=== PATIENT | male | born 1990 | race Hispanic/Latino ===

== ENCOUNTER 2019-03-10 16:27 | Inpatient (IN) | payer MEDICARE, MEDICAID ==
[~2019-03-10 16:27] MED LIST: EPINEPHrine 1 MG/10 ML Abboject SYRINGE ONE; Sodium Bicarb 50 MEQ/50 ML Abboject 8.4% SYRINGE ONE
[2019-03-10 16:56] LABS: Actual Bicarbonate (HCO3a) 2.7 mEq/L (22-28); Analyzer IN Cardio ER; Base Excess (BEa) -27.8 mEq/L (-2.0 to +3.0); Hemoglobin (Hb) 16.1 g/dL (14.0-18.0); O2 Tension (PaO2) 133.8 mmHg (80.0-100.0); Potassium - ABG Lab 3.73 mmol/L (3.70-5.30)
[2019-03-10 16:57] LABS: ALV-art Gradient 0.305 (0-20); CO2 Tension 12.5 mmHg (35.0-45.0); Puncture Site RRA; pH, Arterial 6.95 (7.35-7.45)
[2019-03-10 17:11] LABS: Hemoglobin 16.6 g/dL (14.0-18.0); Mean Corpuscular HGB CONC 33.4 g/dL (32.0-36.0); Mean Corpuscular Hemoglobin 28.2 pg (27.0-31.0); Mean Corpuscular Volume 84.5 fL (78.0-98.0); Mean Platelet Volume 11.3 fL (7.4-10.4); Platelet Count 261 thou/uL (130-400); RBC Distribution Width 12.6 % (11.5-14.5); Red Blood Cell (RBC) Count 5.88 mill/uL (4.70-6.10); White Blood Cell (WBC) Count 14.8 thou/uL (4.8-10.8)
[2019-03-10] MEDS ORDERED: Fentanyl 100 MCG/2 ML VIAL ONE (17:26)
[2019-03-10] MEDS ORDERED: Ondansetron PF 4 MG/2 ML Vial ONE (17:26)
[2019-03-10 17:30] LABS: Acetaminophen Less than 6.0 mcg/mL (10.0-30.0); Alcohol Less than 10 mg/dL (Less than 10); CK (CPK) 645 U/L (30-200); Salicylate Less than 8.0 mg/dL (15.0-30.0)
[2019-03-10 17:34] LABS: Band 67 % (5-11); Large Platelets SLIGHT; MDiff Complete? YES; Metamyelocyte 3 % (0-0); Monocytes 5 % (0-10); Neutrophil 15 % (42-75); Platelet Morphology Comment Appears Adequate; Polychromasia SLIGHT = 2-3 cells (100X) (0-2/hpf); Reactive Lymphocytes 10 % (0-10); Reflex for Review?? YES
--- NOTE | 2019-03-10 17:36 | RAD ---
RADIOGRAPH CHEST 1 VIEW: DATE: 03/10/2019 HISTORY: 28-year-old male with drug overdose. FINDINGS: Study is limited because of hypoinflated lungs. There are no airspace densities, pulmonary edema, pne umothorax, or cardiomegaly. The lateral costophrenic angles are sharp. IMPRESSION: No acute cardiopulmonary findings.
[2019-03-10 17:41] LABS: ALT (SGPT) 42 U/L (8-55); AST (SGOT) 25 U/L (5-34); Albumin 4.2 g/dL (3.5-5.0); Alkaline Phosphatase 114 U/L (40-110); BUN (Urea Nitrogen) 55 mg/dL (8.9-20.6); Bilirubin, Total 0.5 mg/dL (0.2-1.2); Calc. Creatinine Clearance 0 mL/min (70-130); Calcium 9.5 mg/dL (7.8-10.44); Carbon Dioxide Less than 8 mmol/L (22-29); Chloride 77 mmol/L (98-107); Estimated GFR-MDRD 23; Globulin 3.4 g/dL (2.4-3.5); Glucose 852 mg/dL (70-105); Lipase 512 U/L (8-78); Potassium 3.8 mmol/L (3.5-5.1); Protein, Total 7.6 g/dL (6.0-8.3); Sodium 116 mmol/L (136-145)
[2019-03-10] MEDS ORDERED: Insulin Regular 100 units/100 ml in NS IVPB SCH (18:15)
[2019-03-10] MEDS ORDERED: NS 0.9% w/ 40 MEQ KCL 1,000 ML IV SCH (18:30)
[2019-03-10] MEDS ORDERED: Ondansetron PF 4 MG/2 ML Vial IVP PRN (18:58)
[2019-03-10] MEDS ORDERED: Guaifenesin DM 100-10/5 ML UDCUP PO PRN (18:58)
[2019-03-10] MEDS ORDERED: Senokot S 8.6-50 MG TAB PO PRN (18:58)
[2019-03-10] MEDS ORDERED: NS 0.9% w/ 20 MEQ KCL 1,000 ML IV PRN ×2 (18:58)
[2019-03-10] MEDS ORDERED: D5 1/2 NS w/20 mEq KCL 1,000 ML IV PRN (18:58)
[2019-03-10] MEDS ORDERED: Bisacodyl 10 MG SUPP PR PRN (18:58)
[2019-03-10] MEDS ORDERED: ALPRAZolam 0.25 MG TAB PO PRN (18:58)
[2019-03-10] MEDS ORDERED: Sodium Chloride 0.9% 1,000 ML IV PRN ×4 (18:58)
[2019-03-10] MEDS ORDERED: CCU Electrolyte Replacement 1 EACH IVPB ONE (18:58)
[2019-03-10] MEDS ORDERED: cefTRIAXone\\ROCEPHIN 1 GM in Sodium Chloride 0.9% 100 ML IVPB SCH (19:00)
[2019-03-10] MEDS ORDERED: Magnesium Oxide 400 MG TAB PO PRN ×2 (19:12)
[2019-03-10] MEDS ORDERED: PHOS-NAK 1 PKT PACK PO PRN ×2 (19:12)
[2019-03-10] MEDS ORDERED: Potassium Chloride 40 MEQ in Sodium Chloride 0.9% 250 ML 250 ML IVPB PRN (19:12)
[2019-03-10] MEDS ORDERED: Potassium Phosphate 9 MMOL in Sodium Chloride 0.9% 100 ML IVPB PRN (19:12)
[2019-03-10] MEDS ORDERED: Potassium Chloride 40 MEQ in Premix Bag 1 BAG IVPB PRN (19:12)
[2019-03-10] MEDS ORDERED: CCU ELECTROLYTE REPLACEMENT PROTOCOL FS PRN (19:12)
[2019-03-10] MEDS ORDERED: Potassium Chloride 20 MEQ TAB PO PRN (19:12)
[2019-03-10] MEDS ORDERED: Potassium Phosphate 15 MMOL in Sodium Chloride 0.9% 250 ML 250 ML IV PRN (19:12)
[2019-03-10] MEDS ORDERED: Magnesium 2 GM/50 ML 2 GM in Premix Bag 1 BAG IVPB PRN (19:12)
[2019-03-10] MEDS ORDERED: Potassium Phosphate 12 MMOL in Sodium Chloride 0.9% 250 ML 250 ML IV PRN (19:12)
[2019-03-10 19:20] LABS: Bacteria/HPF None Seen HPF (None Seen); Bilirubin Negative (Negative); Blood, Urine 3+ (Negative); Clarity Clear (Clear); Glucose, Urine (Dipstick) Greater than 1000 mg/dL (Negative); Leukocyte Negative Leu/uL (Negative); Nitrite Negative (Negative); Protein, Urine (Dipstick) 50 mg/dL (Neg-Trace); RBC/HPF 0-3 HPF (0-3); Squamous Epithelial 0-3 HPF (0-3); Urobilinogen Normal mg/dL (Less than 2); WBC/HPF 0-3 HPF (0-3)
[2019-03-10 19:24] LABS: Amphetamine Not Detected (NotDetected); Barbiturates Screen Not Detected (NotDetected); Benzodiazepine Screen Not Detected (NotDetected); Cocaine Metabolite Screen Not Detected (NotDetected); Medtox Control Line Valid? VALID (VALID); Medtox Reader # READER 1; Methadone Not Detected (NotDetected); Methamphetamine Not Detected (NotDetected); Opiate Screen Not Detected (NotDetected); Oxycodone Screen Not Detected (NotDetected); Phencyclidine (PCP) Not Detected (NotDetected); THC/Cannabinoid Screen Not Detected (NotDetected); Tricyclic Screen Detected (NotDetected)
[2019-03-10 20:32] LABS: Lactic Acid 2.1 mmol/L (0.5-2.2)
[2019-03-10 20:41] LABS: Chloride 97 mmol/L (98-107); Potassium 3.6 mmol/L (3.5-5.1); Sodium 128 mmol/L (136-145)
[2019-03-10] MEDS: lamoTRIgine 100 MG TAB PO SCH (20:41)
[2019-03-10 20:44] LABS: Calcium 7.5 mg/dL (7.8-10.44); Glucose 554 mg/dL (70-105)
[2019-03-10 20:45] LABS: Carbon Dioxide Less than 8 mmol/L (22-29)
[2019-03-10 20:46] LABS: BUN (Urea Nitrogen) 51 mg/dL (8.9-20.6); Calc. Creatinine Clearance 0 mL/min (70-130); Estimated GFR-MDRD 31
--- NOTE | 2019-03-10 21:33 | HP ---
REASON FOR ADMISSION: DKA. HISTORY OF PRESENT ILLNESS: Please note majority of this history is obtained by talking to the patient's brother and ER physician as the patient is very lethargic. Brother gives history of patient being depressed due to work related issues and was upset on Monday. He usually plays video games, but was on the couch and was reluctant to talk. He managed to get him a pizza and a 2 L soda, which he finished in 2 hours. On Monday, brother came late home, by then he was asleep. Today at around 3 p.m., the patient was sitting on the couch and was saying he could not breathe. He took 2 tablets of antacids and still was not getting comfortable. He was getting more lethargic and EMS was summoned. The patient has history of prediabetes in the past. He has known history of schizophrenia and bipolar disorder. No complaints of cough or expectoration. No complaints of abdominal pain or urinary symptoms including frequency or urgency. No chest pain. PAST MEDICAL AND SURGICAL HISTORY: History of schizophrenia, bipolar disorder, obesity, and prediabetes. CURRENT MEDICATIONS: The patient is on, 1. Nortriptyline 50 mg p.o. at bedtime. 2. Alprazolam 0.5 mg p.o. at bedtime. 3. Lamotrigine 200 mg p.o. at bedtime. 4. Clozapine 100 mg p.o. daily. ALLERGIES: NO KNOWN DRUG ALLERGIES. PERSONAL HISTORY: Rarely drinks alcohol, which he had day before and does not abuse drugs or smoke. He works at [employer] and does 20 hours a week. Lives with his parents and brother. FAMILY HISTORY: The patient is adopted. Both adopted parents are living and healthy. CODE STATUS: Full. Power of erisa attorney is his mom, Ms. Denis Lopez, number to reach her is [phone]. REVIEW OF SYSTEMS: Cannot be obtained as the patient is not oriented and is lethargic at present. PHYSICAL EXAMINATION: GENERAL: The patient is a 28-year-old male, who is not in any acute distress. VITAL SIGNS: Blood pressure 68/44 on arrival, currently 90/40; pulse 76 per minute; respiratory rate 30 per minute; temperature 94.2 degrees on arrival; and saturating 100% on room air. NECK: Supple. No elevated JVD. HEENT: Eyes; extraocular muscles intact. Pupils reacting to light. Oral cavity, mucous membranes are dry. No exudates or congestion. CARDIOVASCULAR: S1 and S2 heard. Regular rhythm. RESPIRATORY: Air entry 1+ bilateral. Scattered rhonchi plus no rales or wheezes. ABDOMEN: Soft. Bowel sounds heard. No tenderness, rigidity, or guarding. EXTREMITIES: No peripheral edema or calf tenderness. VASCULAR: Peripheral pulses 1+ bilateral. No ischemic ulcerations or gangrene. CENTRAL NERVOUS SYSTEM: No gross focal deficits noted. The patient is very lethargic, but follows simple verbal stimuli. PSYCHIATRIC: No obvious hallucinations or delusions. This psychiatric history is limited due to the patient's current severe lethargy. LABORATORY DATA: Chest x-ray done shows no acute cardiopulmonary abnormalities. Urine drug screen is positive for tricyclics, beta hydroxybutyrate 12.9. UA shows greater than 1000 mg/dL of ketones. Lactic acid was 2.7, serum glucose 852, BUN 55, creatinine 3.2, serum bicarb less than 8, sodium is 116. Liver enzymes within normal limits. CK level 645. Lipase is 512. TSH 0.26. Blood gas done shows a pH of 6.95, pCO2 of 12, pO2 of 133. White count of 14, H and H 16 and 49, platelet count 261 with 15% neutrophils, 67% bands. CLINICAL IMPRESSION AND PLAN: The patient will be admitted to IM for severe diabetic ketoacidosis, severe dehydration, acute kidney injury, possible sepsis with unknown source, and hypothermia. He is currently on a Esperanza Hugger. We will follow diabetic ketoacidosis evidence based protocol. Blood and urine cultures will be obtained. He will be on empiric ceftriaxone for now. We will also obtain a CT of the abdomen and pelvis when his gap gets to close better. He has elevated lipase and it is unclear the exact etiology for the same. His abdomen is benign at present. We will further workup to rule out pancreatitis including a CAT scan will be done when he gets better. Job ID: [id number]
[2019-03-10] MEDS ORDERED: Sodium Bicarb 50 MEQ/50 ML VIAL ONE (22:24)
[2019-03-10] MEDS ORDERED: ALPRAZolam 0.5 MG TAB PO SCH (22:30)
[2019-03-10] MEDS ORDERED: Propofol 1,000 MG/100 ML VIAL IV ONE (22:43)
[2019-03-10] MEDS ORDERED: Norepinephrine 8 MG/0.9% NS 250 ML ONE (22:43)
[2019-03-10 22:57] LABS: Actual Bicarbonate (HCO3a) 9.4 mEq/L (22-28); Base Excess (BEa) -18.9 mEq/L (-2.0 to +3.0); CO2 Tension 30.7 mmHg (35.0-45.0); Calcium, Ionized 1.16 mmol/L (1.12-1.30); Carboxyhemoglobin (COHb) 0.7 gm% (0.0-3.0); O2 Tension (PaO2) 159.5 mmHg (80.0-100.0); Potassium - ABG Lab 3.46 mmol/L (3.70-5.30)
[2019-03-10 23:13] LABS: Anion Gap 25 mmol/L (10-20); BUN (Urea Nitrogen) 52 mg/dL (8.9-20.6); Calc. Creatinine Clearance 64 mL/min (70-130); Calcium 7.2 mg/dL (7.8-10.44); Carbon Dioxide 10 mmol/L (22-29); Chloride 103 mmol/L (98-107); Estimated GFR-MDRD 30; Glucose 207 mg/dL (70-105); Potassium 3.8 mmol/L (3.5-5.1); Sodium 134 mmol/L (136-145)
[2019-03-10 23:18] LABS: Puncture Site R BRACHIAL; pH, Arterial 7.11 (7.35-7.45)
[2019-03-10 23:19] LABS: ALV-art Gradient 229.925 (0-20)
[2019-03-10] MEDS ORDERED: Sterile Water 10 ML ONE (23:24)
[2019-03-10] MEDS ORDERED: Vecuronium 10 MG VIAL ONE (23:24)
--- NOTE | 2019-03-10 23:33 | RAD ---
RADIOGRAPH CHEST 1 VIEW: Supine DATE: 03/10/2019 10:32 PM HISTORY: 28-year-old male status post cardiopulmonary arrest. Status post intubation. COMPARISON: 03/10/2019 5:05 PM FINDINGS: Again, lungs are hypoinflated, making this a limited study. There is no consolidation or pulmonary ed burak. The lateral costophrenic angles are sharp. Supine positioning makes this study insensitive for the detection of pneumothorax. There is a new endotracheal tube with distal tip 2 cm superior to colin na. New esophagogastric tube coursing through left upper quadrant of abdomen. There are defibrillation paddles overlying upper quadrants of bilateral abdomen. New left IJ central line with distal tip overlying SVC. IMPRESSION: 1. No acute pulmonary findings. 2. Status post intubation and central vascular catheter placement.
[2019-03-10] MEDS: Piperacillin/Tazobactam 4.5 GM in Sodium Chloride 0.9% 100 ML IVPB SCH (23:40)
[2019-03-11] MEDS ORDERED: Propofol 1,000 MG/100 ML VIAL IV PRN (00:03)
[2019-03-11] MEDS ORDERED: Fentanyl BOLUS 250 ML IVPB PRN ×2 (00:03→13:43)
[2019-03-11] MEDS ORDERED: Propofol BOLUS 1,000 MG/100 ML VIAL IV PRN ×2 (00:03→13:43)
[2019-03-11] MEDS ORDERED: Morphine 2 MG/ML SYRINGE SLOW IVP PRN ×2 (00:03→13:43)
[2019-03-11] MEDS ORDERED: DISCONTINUE PREVIOUS NARCOTIC PAIN MEDICATIONS AND BENZODIAZEPINES FS SCH ×2 (00:03→13:43)
[2019-03-11] MEDS ORDERED: Sterile Water 0 ML ONE (01:01)
[2019-03-11] MEDS ORDERED: Sterile Water 10 ML ONE (01:03)
[2019-03-11] MEDS: Vecuronium 10 MG VIAL IV PRN ×7 (01:04→14:30)
--- NOTE | 2019-03-11 01:20 | CON ---
DATE OF CONSULTATION: 03/10/2019 HISTORY OF PRESENT ILLNESS: Hao Lopez is a 28-year-old male, who has a history of schizophrenia. According to his brother who lives with him, on Monday, he was complaining that he did not think his boss liked him. His brother stated that Mr. Lopez was acting like he acts sometimes when he is not taking his medicine. There was a concern that maybe he drank some alcohol, but it sounds like he only drank part of a one wine cooler. He has no history of drinking alcohol or doing drugs in the past. He was told many years ago that if he drank alcohol with his psychotropic medications that he would become quite ill. He has had a long history of mental and medical problems. He was told according to the brother when he was a teenager that his brain was racking that he would not live very long. When he was in his early teenage years, he received growth hormone to help facilitate an increase in his size because he was of very small stature. Apparently, his brother went to [facility] yesterday and was gone all day and when he came home, Mr. Lopez was in bed. He got up to go to [place] this morning. Mr. Lopez was still in bed and when he got home this afternoon, Mr. Lopez was on the couch. He was complaining of shortness of breath and acting differently. Shortly after that, he called EMS. He was complaining of some epigastric discomfort, for which he was given an antacid right before calling EMS. PAST MEDICAL HISTORY: Otherwise, unremarkable. He has never been told he was a borderline diabetic or diabetic in the past. FAMILY HISTORY: Negative for lung disease in early age. SOCIAL HISTORY: Works part-time at [employer]. REVIEW OF SYSTEMS: 10 point review of systems completed, not obtainable. PHYSICAL EXAMINATION: VITAL SIGNS: Blood pressure is 110 systolic. He is on 10 mcg of Levophed. I am told he received 4 to 5 L of IV fluids in the emergency room and a couple of liters after the code, getting another liter now. GENERAL: He did not make eye contact when I arrived. HEENT: His pupils were reactive. Sclerae are anicteric. NECK: He had no cervical lymphadenopathy. LUNGS: Clear anteriorly. HEART: Regular rhythm. ABDOMEN: Soft. EXTREMITIES: Without asymmetry. LABORATORY DATA: Remarkable for white count 14.8, hemoglobin of 16.6, platelets of 261. He had 67% bands on his peripheral smear, 3% metamyelocytes. PH in the emergency department was 6.95, CO2 of 12, PO2 of 133 on room air. Post-code, pH 7.11, CO2 of 30, PO2 of 159. His ventilatory rate was increased to 30. Creatinine earlier today was 2.5. Creatinine this evening when he coded was 2.53. His bicarb was less than 8 on his first chem-7 at 8:18 and was 10 on his second set of lab. His initial glucose was 852. His initial sodium was 116, which is obviously pseudohyponatremia. He had a beta hydroxybutyrate level of 12.9. Urinalysis showed obviously ketones and glucose, but no white cells. Drug screen was only remarkable for tricyclics. There was no alcohol in his system. IMPRESSION: 1. New onset diabetes with diabetic ketoacidosis as well as a hyperosmolar state. 2. Renal insufficiency of unclear duration. His creatinine is down from 3.2 at 4:50 in the afternoon. He will continue with the diabetic ketoacidosis protocol, but I would not recommend potassium replacement at this point. His lipase is 512, which may explain his epigastric discomfort, but I have seen type 1 diabetics with DKA develop elevated amylase and lipase and this resolves gradually. I doubt at 28 years of age he has a gallstone. Probably it is reasonable given his abdominal complaints to at least do a noncontrast abdominal CT to rule out free air and abscess somewhere, but this seems unlikely. I met with the family and answered all their questions. We had another blood gas at 1:00 In the morning. Check a cortisol given that he is hypotensive, but it is unlikely he has adrenal insufficiency. CRITICAL CARE TIME: 90 minutes. Job ID: [id number] [facility]
[2019-03-11 01:23] LABS: Actual Bicarbonate (HCO3a) 11.6 mEq/L (22-28); Calcium, Ionized 1.15 mmol/L (1.12-1.30); Carboxyhemoglobin (COHb) 0.6 gm% (0.0-3.0); Hemoglobin (Hb) 13.6 g/dL (14.0-18.0); O2 Tension (PaO2) 113.9 mmHg (80.0-100.0); Potassium - ABG Lab 2.79 mmol/L (3.70-5.30)
[2019-03-11 01:24] LABS: Lactic Acid 2.2 mmol/L (0.5-2.2)
[2019-03-11] MEDS: fentaNYL Citrate/PF 2,000 MCG in Sodium Chloride 0.9% 60 ML IV SCH ×3 (01:39→19:24)
[2019-03-11] MEDS: HUMULIN R 100 UNITS in Sodium Chloride 0.9% 100 ML IVPB SCH ×2 (02:59→22:52)
[2019-03-11] MEDS ORDERED: Norepinephrine 8 MG/0.9% NS 250 ML IVPB SCH (04:15)
--- NOTE | 2019-03-11 04:26 | PDOC.EVN ---
Event Note - Event Note Event Note: Pt seen several times last night. Had Code Blue at 22;[address] MD Dr Tabares ran the code, with ROSC. Pt is now intubated and mechanically ventilated, on levophed through central line. Also on insulin infusion. Met with patient's brother and updated him. Discussed with Dr. Nicholson, [facility] consulting sales manager. He came in and saw pt. Will follow tonight PRN.
[2019-03-11 04:27] LABS: Anion Gap 15 mmol/L (10-20); BUN (Urea Nitrogen) 54 mg/dL (8.9-20.6); Calc. Creatinine Clearance 76 mL/min (70-130); Calcium 7.2 mg/dL (7.8-10.44); Carbon Dioxide 14 mmol/L (22-29); Chloride 106 mmol/L (98-107); Cholesterol 134 mg/dl (< 200 Desired); Estimated GFR-MDRD 37; Glucose 86 mg/dL (70-105); HDL Cholesterol 45 mg/dL (>60 Neg Risk); LDL Cholesterol, Calculated 75 mg/dL; Sodium 132 mmol/L (136-145); Triglycerides 69 mg/dL (Less than 150)
[2019-03-11 04:38] LABS: Potassium 2.8 mmol/L (3.5-5.1)
[2019-03-11 05:02] LABS: Puncture Site R BRACHIAL; pH, Arterial 7.25 (7.35-7.45)
[2019-03-11 07:22] LABS: Actual Bicarbonate (HCO3a) 10.4 mEq/L (22-28); Base Excess (BEa) -14.3 mEq/L (-2.0 to +3.0); Calcium, Ionized 1.13 mmol/L (1.12-1.30); Carboxyhemoglobin (COHb) 0.2 gm% (0.0-3.0); Hemoglobin (Hb) 12.6 g/dL (14.0-18.0); O2 Tension (PaO2) 124.4 mmHg (80.0-100.0); Potassium - ABG Lab 3.65 mmol/L (3.70-5.30); pH, Arterial 7.29 (7.35-7.45)
[2019-03-11 07:23] LABS: CO2 Tension 22.2 mmHg (35.0-45.0)
[2019-03-11 07:24] LABS: Puncture Site RBRACH
[2019-03-11] MEDS: Piperacillin/Tazobactam 4.5 GM in Sodium Chloride 0.9% 100 ML IVPB SCH ×4 (07:38→23:13)
[2019-03-11] MEDS: Lorazepam 2 MG/ML VIAL SLOW IVP PRN ×2 (08:18→12:43)
--- NOTE | 2019-03-11 08:45 | CT ---
PRELIMINARY REPORT/[facility]/EMERGENCY AFTER HOURS PROCEDURE: EXAM: CT Abdomen and Pelvis Without Intravenous Contrast CLINICAL HISTORY: POST CODE, SUSPICION OF ABDOMINAL FREE AIR TECHNIQUE: Axial computed tomography images of the abdomen and pelvis without intravenous contrast. Coronal and sagittal reformatted images are provided. CONTRAST: None. COMPARISON: None provided. FINDINGS: LUNG BASES: Small bilateral layering pleural effusions. Bibasilar atelectasis with consolidation. The heart is normal size. Pericardial effusion. Nasogastric tube terminates within the stomach. LIVER: Enlarged, measuring 22.6 cm at the mid right hepatic lobe. No focal hepatic lesions. GALLBLADDER AND BILE DUCTS: Unremarkable. No calcified stone. No ductal dilation. PANCREAS: Unremarkable. SPLEEN: Enlarged, measuring up to 15.4 cm. No focal lesions. ADRENAL GLANDS: Unremarkable. KIDNEYS, URETERS, AND BLADDER: Unremarkable. No hydronephrosis or nephrolithiasis. No ureteral or ellis dder calculi. STOMACH AND BOWEL: No obstruction. No wall thickening. No CT evidence of colitis or acute diverticuli tis. Fluid and some air fluid levels within the colon, without dilation. APPENDIX: No CT evidence for appendicitis. PERITONEUM: No free fluid. No free air. No intra-abdominal abscess. LYMPH NODES: No lymphadenopathy. REPRODUCTIVE: Unremarkable as visualized. VASCULATURE: No aortic aneurysm. ABDOMINAL WALL AND SOFT TISSUES: Unremarkable. BONES: No fracture or suspicious osseous abnormality. IMPRESSION: 1. No intra-peritoneal free air. 2. Hepatosplenomegaly. There is a nonspecific finding and can be normal variant. Correlate for cau ses. 3. Bibasilar atelectasis with consolidation and small bilateral pleural effusions. Underlying infec tion cannot be excluded. 4. Enteric tube terminates within the stomach. ELECTRONICALLY SIGNED BY: Lee Yang M.D. Mar 11, 2019 1:17:58 AM CARE CLINICIAN This report is intended for review by the ordering physician only, in accordance of law. If you recei ve this report in error, please call [facility] at [phone]. FINAL REPORT EMERGENT AFTER HOURS NONCONTRAST CT ABDOMEN AND PELVIS: HISTORY: Post code, suspicion of abdominal free air. COMPARISON: None. IMPRESSION: 1. Bibasilar parenchymal densities which are probably related to atelectasis, but infiltrates cannot be excluded. 2. Nasogastric tube is noted in place with the tip in the gastric antrum. 3. Enlargement of the liver in craniocaudal dimensions which measures 22 cm. There is artifact thro ugh the liver secondary to patient's arms down by the side, but there also appears to be fatty infilt ration of the liver. Enlargement of the spleen in craniocaudal dimensions measuring 15 cm. This could potentially be related to patient's size and body habitus, but hepatosplenomegaly cannot be entirely excluded. 5. Lack of intravenous contrast limits sensitivity for evaluation of the parenchymal organs, but no definite abnormality is appreciated on noncontrasted imaging. 6. There are dilated proximal loops of jejunum, and the bowel in this region also appears mildly thi ckened. There is adjacent minimal stranding. There is no focal transition point noted, and findings could be related to enteritis. However, in given history of recent code, findings could be related to ischemia. Follow up as clinically indicated. 7. No CT evidence of appendicitis. 8. No free fluid or free intraperitoneal gas is seen in the abdomen or pelvis. 9. Findings are in disagreement with the preliminary report by [facility]. Thickened loops of small bowel were not mentioned. Finding was discussed with Dr. Pennington on 03/11/2019. POS: OFF
[2019-03-11] MEDS ORDERED: Amlodipine 5 MG TAB PO SCH (09:00)
[2019-03-11] MEDS ORDERED: Enoxaparin Sodium 30 MG/0.3 ML SYRINGE SC SCH (09:00)
[2019-03-11] MEDS ORDERED: Nortriptyline HCl 25 MG CAP PO SCH (09:00)
[2019-03-11 09:20] LABS: Potassium 3.5 mmol/L (3.5-5.1)
[2019-03-11] MEDS ORDERED: Vancomycin HCl 1 GM in Premix Bag 1 BAG IVPB SCH ×2 (10:00→14:00)
[2019-03-11] MEDS: Dextrose 5 %-0.45 % NaCl 1,000 ML IV PRN ×2 (10:00→17:36)
[2019-03-11] MEDS: Metoclopramide HCl 10 MG/2 ML VIAL IVP SCH ×3 (12:40→23:13)
[2019-03-11] MEDS ORDERED: Propofol 1,000 MG/100 ML VIAL IV ONE (13:07)
[2019-03-11] MEDS: Propofol 1,000 MG/100 ML VIAL IV PRN ×2 (13:30→20:30)
--- NOTE | 2019-03-11 13:42 | PRG ---
DATE OF SERVICE: 03/11/2019 SUBJECTIVE: Hao Lopez apparently has recovered neurologically. During his sedation holiday, apparently he was following commands. OBJECTIVE: VITAL SIGNS: His heart rate is 109, blood pressure is 111/59, and respiratory rate is still 30. LUNGS: Clear. HEART: Regular rhythm. ABDOMEN: Soft. EXTREMITIES: Without clubbing, cyanosis or edema. LABORATORY DATA: White count 14.8, hemoglobin 16.6, and platelets 261. Glucose is in the 161 to 200 range. He remains on an insulin drip. He remains hyperventilated. PH is still remarkable for a pH of 7.29, pCO2 of 22, and pO2 of 124. Anion gap is 12 today. IMPRESSION: Mixed metabolic acidosis, part of this is diabetic ketoacidosis, part of this is related to developing hyperchloremia, and part of this is secondary to his renal insufficiency. His creatinine is down to 2.16. We will continue with supportive care. He does not need potassium in his diabetic ketoacidosis protocol. It is reasonable to replace his potassium gently, but it is also unlikely to create any problems at 28 years of age. He does need an echocardiogram. It is unusual for a young diabetic even newly diagnosed to have a cardiac arrest. I was told he had V-tach or VFib, but I have not seen the rhythm strips. Most likely metabolically related unless he has an incidental finding of an underlying cardiomyopathy. We met with mom and updated her. CRITICAL CARE TIME: 30 minutes. Job ID: [id number]
--- NOTE | 2019-03-11 15:49 | PDOC.HOSPP ---
- Subjective Encounter Date: 03/11/19 Encounter Time: 12:30 Subjective: On vent trying to wake up. Overnight events noted. mother at bedside. - Objective Vital Signs & Weight: Vital Signs (12 hours) Temp Pulse Resp BP Pulse Ox 03/11/19 14:36 107 H 03/11/19 14:00 30 H 03/11/19 12:00 30 H 03/11/19 11:00 99.2 F 03/11/19 10:16 109 H 03/11/19 08:00 100 03/11/19 07:05 109 H 03/11/19 04:59 105 H 108/45 L 03/11/19 04:00 30 H Weight Admit Weight 231 lb Weight 231 lb 3 oz Most Recent Monitor Data Heart Rate from ECG 104 NIBP 150/80 NIBP BP-Mean 103 Respiration from ECG 30 SpO2 100 I&O: 03/10/19 03/11/19 03/12/19 06:59 06:59 06:59 Intake Total 3665 100 Output Total 1830 655 Balance 1835 -555 Result Diagrams: 03/10/19 16:53 03/11/19 08:49 Additional Labs: Accuchecks 03/11/19 03/11/19 03/11/19 15:02 14:26 13:22 POC Glucose 150 H 153 H 128 H 03/11/19 03/11/19 03/11/19 12:18 11:14 10:14 POC Glucose 161 H 199 H 208 H 03/11/19 03/11/19 03/11/19 09:30 08:06 07:07 POC Glucose 252 H 254 H 255 H 03/11/19 03/11/19 03/11/19 06:16 05:18 04:05 POC Glucose 197 H 169 H 83 03/11/19 03/11/19 03/11/19 03:01 02:10 01:37 POC Glucose 135 H 184 H 196 H 03/10/19 03/10/19 03/10/19 23:57 23:19 22:15 POC Glucose 259 H 294 H 292 H 03/10/19 03/10/19 03/10/19 21:05 20:08 19:25 POC Glucose 440 H 521 H Greater than 550 H* 03/10/19 03/10/19 18:24 16:41 POC Glucose Greater than 550 H* Greater than 550 H* Hospitalist ROS - Medication Medications: Active Medications Generic Name Dose Route Start Last Admin Trade Name Freq PRN Reason Stop Dose Admin Dextrose/Sodium Chloride 1,000 mls @ 250 mls/hr 03/10/19 18:58 03/11/19 10:00 D5 1/2 Ns IV 1,000 mls .Q4H PRN Administration Step 4 of DKA Protocol Protocol Insulin Human Regular 100 101 mls @ 0 mls/hr 03/10/19 19:00 03/11/19 02:59 units/ Sodium Chloride IVPB 101 mls INF LENA Administration Protocol Titrate Piperacillin Sod/Tazobactam 100 mls @ 200 mls/hr 03/10/19 23:00 03/11/19 12: 40 Sod 4.5 gm/ Sodium Chloride IVPB 100 mls 0500,1100,1700,2300 LENA Administration Lamotrigine 200 mg 03/10/19 21:00 03/10/19 20:41 Lamictal PO 200 mg HS LENA Administration Lorazepam 2 mg 03/11/19 00:03 03/11/19 12:43 Ativan SLOW IVP 04/10/19 00:03 2 mg Q1H PRN Administration Breakthrough agitation Metoclopramide HCl 10 mg 03/11/19 12:00 03/11/19 12:40 Reglan IVP 10 mg Q6HR LENA Administration Vecuronium Gilberts 10 mg 03/11/19 00:21 03/11/19 14:30 Norcuron IV 10 mg Q1H PRN Administration Agitation - Exam General Appearance: ill appearing Eye: PERRL, anicteric sclera ENT: no oropharyngeal lesions, dry oral mucosa Neck: supple, no JVD Heart: RRR, no murmur Respiratory: no wheezes, no rales, no ronchi Gastrointestinal: soft, non-tender, non-distended, normal bowel sounds Extremities: no cyanosis, no edema Neurological: cranial nerve grossly intact, no focal deficits Hosp A/P (1) DKA, type 2 Code(s): E11.10 - TYPE 2 DIABETES MELLITUS WITH KETOACIDOSIS WITHOUT COMA Status: Acute Qualifiers: Diabetes mellitus petroleum terminal plant operator insulin use: without intermediate use Diabetes mellitus complication detail: without coma Qualified Code(s): E11.10 - Type 2 diabetes mellitus with ketoacidosis without coma (2) POLO (acute kidney injury) Code(s): N17.9 - ACUTE KIDNEY FAILURE, UNSPECIFIED Status: Acute (3) Sepsis Code(s): A41.9 - SEPSIS, UNSPECIFIED ORGANISM Status: Suspected Qualifiers: Sepsis type: sepsis due to unspecified organism Sepsis acute organ dysfunction status: with acute organ dysfunction Severe sepsis acute organ dysfunction type: acute renal failure Severe sepsis shock status: without septic shock (4) s/p cardiac arrest Status: Acute (5) Obesity (BMI 30-39.9) Code(s): E66.9 - OBESITY, UNSPECIFIED Status: Chronic (6) Schizoaffective disorder Code(s): F25.9 - SCHIZOAFFECTIVE DISORDER, UNSPECIFIED Status: Chronic Qualifiers: Schizoaffective disorder type: unspecified Qualified Code(s): F25.9 - Schizoaffective disorder, unspecified - Plan Developed VF/VT/asystole and arrest with CPR for 15 minutes on 03/10/2019. Intubated with arrest. DKA protocol continued Continue zosyn, lamictal, nortriptyline, clozaril echo for EF/ wall motion await cultures discussed with mom at bedside
[2019-03-11] MEDS ORDERED: ALPRAZolam 0.5 MG TAB PO SCH (21:00)
[2019-03-11] MEDS ORDERED: lamoTRIgine 100 MG TAB PO SCH (21:00)
[2019-03-11] MEDS: lamoTRIgine 100 MG TAB PO SCH (23:12)
[2019-03-11] MEDS: Nortriptyline HCl 25 MG CAP PO SCH (23:12)
[2019-03-12] MEDS: Lorazepam 2 MG/ML VIAL SLOW IVP PRN ×3 (01:05→19:32)
[2019-03-12] MEDS: Vecuronium 10 MG VIAL IV PRN (04:02)
[2019-03-12] MEDS: Metoclopramide HCl 10 MG/2 ML VIAL IVP SCH ×4 (05:17→23:22)
[2019-03-12] MEDS: Piperacillin/Tazobactam 4.5 GM in Sodium Chloride 0.9% 100 ML IVPB SCH ×4 (05:17→23:07)
[2019-03-12 05:40] LABS: Anion Gap 13 mmol/L (10-20); BUN (Urea Nitrogen) 47 mg/dL (8.9-20.6); Calc. Creatinine Clearance 65 mL/min (70-130); Calcium 7.4 mg/dL (7.8-10.44); Carbon Dioxide 16 mmol/L (22-29); Chloride 106 mmol/L (98-107); Estimated GFR-MDRD 31; Glucose 110 mg/dL (70-105); Sodium 133 mmol/L (136-145)
[2019-03-12 05:50] LABS: Potassium 2.3 mmol/L (3.5-5.1)
[2019-03-12 06:04] LABS: Hemoglobin 11.1 g/dL (14.0-18.0); Mean Corpuscular HGB CONC 35.2 g/dL (32.0-36.0); Mean Corpuscular Hemoglobin 27.8 pg (27.0-31.0); Mean Corpuscular Volume 79.1 fL (78.0-98.0); Mean Platelet Volume 10.7 fL (7.4-10.4); Platelet Count 85 thou/uL (130-400); Platelet Morphology Comment Appears Decreased; RBC Distribution Width 12.6 % (11.5-14.5); RBC Morphology Normal; White Blood Cell (WBC) Count 6.2 thou/uL (4.8-10.8)
[2019-03-12 06:11] LABS: Band 38 % (5-11); Eosinophils 1 % (0-10); Lymphocytes 19 % (21-51); Metamyelocyte 11 % (0-0); Monocytes 8 % (0-10); Neutrophil 23 % (42-75)
[2019-03-12 06:18] LABS: MDiff Complete? YES
--- NOTE | 2019-03-12 07:50 | RAD ---
Portable frontal chest radiograph: 03/12/2019 COMPARISON: 03/10/2019 HISTORY: Ventilated patient FINDINGS: Stable endotracheal tube and nasogastric tube. Stable left vascular catheter. There is impr arjun aeration in the right upper lobe with persistent mild increased density in the medial right lung apex. Hazy bibasilar densities suggest nonspecific bibasilar consolidation/collapse, left greate r than right. IMPRESSION: Lines and tubes as detailed above. Nonspecific pulmonary parenchymal opacity bilaterally.
[2019-03-12 08:14] LABS: Actual Bicarbonate (HCO3a) 13.6 mEq/L (22-28); Base Excess (BEa) -8.4 mEq/L (-2.0 to +3.0); Carboxyhemoglobin (COHb) 0.4 gm% (0.0-3.0); Hemoglobin (Hb) 10.9 g/dL (14.0-18.0); O2 Tension (PaO2) 150.8 mmHg (80.0-100.0); pH, Arterial 7.46 (7.35-7.45)
[2019-03-12] MEDS ORDERED: Potassium Chloride 40 MEQ in Premix Bag 1 BAG IVPB SCH (08:15)
[2019-03-12 08:32] LABS: CO2 Tension 19.6 mmHg (35.0-45.0); Puncture Site L.R.
[2019-03-12] MEDS ORDERED: Enoxaparin Sodium 40 MG/0.4 ML SYRINGE SC SCH (09:00)
[2019-03-12] MEDS: Propofol 1,000 MG/100 ML VIAL IV PRN ×3 (09:28→20:43)
[2019-03-12] MEDS: FLU VACC QS2019-20(6MOS UP)/PF 60 MCG/0.5 ML SYRINGE IM ONE (10:23)
[2019-03-12] MEDS ORDERED: Dextrose 5% in Water 1,000 ML IV PRN (12:31)
[2019-03-12] MEDS ORDERED: Dextrose 50% Abboject 50 ML SYRINGE SLOW IVP PRN (12:31)
[2019-03-12] MEDS: Sodium Chloride 0.9% 1,000 ML IV SCH ×2 (12:47→19:34)
[2019-03-12 13:33] LABS: Fibrinogen 583 mg/dL (253-463); INR-International Normal Ratio 1.2
--- NOTE | 2019-03-12 13:55 | PQF ---
RAJANI ABBOTT, DA DODSON MD [id number] CCU-C10 [id number] CLINICAL DOCUMENTATION IMPROVEMENT CLARIFICATION FORM: ICD-10 Updated PLEASE DO AN ADDENDUM TO THE PROGRESS NOTE WITH ANY DOCUMENTATION UPDATES OR ADDITIONS AND CARRY THROUGH TO DC SUMMARY. THANK YOU. DATE: 03/12/2019 ATTN:DR. Alex GRAVES Please exercise your independent, professional judgment in responding to the clarification form. Clinical indicators are provided on the bottom of this form for your review. Please check appropriate box(s) to clarify if the following diagnosis has been ruled in or ruled out: SEPSIS [ x] Ruled in diagnosis [ x] Continue to treat [ ] Resolved [ ] Ruled out diagnosis [ ] Cannot rule out diagnosis [ ] Other diagnosis [ ] Unable to determine In addition, please specify: Present on Admission (POA): [ x ] Yes [ ] No [ ] Unable to determine For continuity of documentation, please document condition throughout progress notes and discharge summary. Thank You. CLINICAL INDICATORS - SIGNS / SYMPTOMS / LABS / RESULTS AND LOCATION IN MR 03/10/19 ED REPORT PT PRESENTED WITH BP 94/98- 98/44, RESP 30-36, TEMP 94.2 RECTAL, PT WAS ALTERED UPON EMS ARRIVAL 03/10 H&P (ELY) CLINICAL IMPRESSION: THE PATIENT WILL BE ADMITTED TO IMCU FOR SEVERE DIABETIC KETOACIDOSIS, SEVERE DEHYDRATION, ACUTE KIDNEY INJURY, POSSIBLE SEPSIS WITH UNKNOWN SOURCE, AND HYPONATREMIA. BLOOD AND URINE CULTURES WILL BE OBTAINED, HE IS ON EMPIRIC CEFTRIAXONE FOR NOW. 03/11 PN (ELY) 3). SEVERE SEPSIS SUSPECTED / ACUTE ORGAN DYSFUNCTION TYPE DUE TO UNSPECIFIED ORGANISM, ACUTE RENAL FAILURE WITHOUT SEPTIC SHOCK. 03/10 WBC 14.8 03/10 BANDS 67 03/12 BANDS 38 RISK: CARDIAC ARREST (03/11/IVORY) EVENT NOTE DX DKA TYPE 2, POLO (03/11/ ELY) PN TREATMENTS BLOOD CULTURES (03/10) ZOSYN IV ( 03/10-PRESENT) THANK YOU! RICHARD (This form is maintained as a part of the permanent medical record) 2014 [employer] All Rights Reserved [email or web address] [phone] DILCIA
--- NOTE | 2019-03-12 14:30 | PQF ---
RAJANI ABBOTT, DA DODSON MD [id number] CCU-C10 [id number] CLINICAL DOCUMENTATION IMPROVEMENT CLARIFICATION FORM: ICD-10 Updated PLEASE DO AN ADDENDUM TO THE PROGRESS NOTE WITH ANY DOCUMENTATION UPDATES OR ADDITIONS AND CARRY THROUGH TO DC SUMMARY. THANK YOU. DATE: 03/10/2019 ATTN: DR. Alex GRAVES Please exercise your independent, professional judgment in responding to the clarification form. Clinical indicators are provided on the bottom of this form for your review. Please check appropriate box(s): [ x ] Acute Respiratory Failure: [ x ] with Hypoxia[ ] with Hypercapnia [ ] Acute Respiratory Failure due to: (etiology) [ ] ARDS (Acute Respiratory Distress Syndrome) [ ] Hypoxia [ ] Other diagnosis [ ] Unable to determine In addition, please specify: Present on Admission (POA): [ ] Yes [ x ] No [ ] Unable to determine For continuity of documentation, please document condition throughout progress notes and discharge summary. Thank You. CLINICAL INDICATORS - SIGNS / SYMPTOMS / LABS / RESULTS AND LOCATION IN 03/10 ED REPORT : RESP 30-36, 03/10 ABG PH 6.95 > 7.11 03/11 ABG PH 7.25 03/10 ABG pCO2 12.5 03/11 ABG pCO2 22.2 > 19.6 03/10 CODE EVENT: ASYSTOLE> PEA> ROSC, PT INTUBATED, PLACED ON MECHANICAL VENTILATOR AND TRANSFERRED TO ICU. 03/11 PN (ELY) ON VENT TRYING TO WAKE UP, A/P : 4). S/P CARDIAC ARREST, DEVELOPED VF/VT /ASYSTOLE AND ARREST WITH CPR FOR 15 MINUTES ON 03/10/19. INTUBATED WITH ARREST. RISK: DX SEPSIS, DKA, POLO (H&P/ELY) 03/10 TREATMENTS: PULMONOLOGY CONSULT () MECHANICAL VENTILATION ( 03/10-PRESENT) Acute Respiratory Failure: ABG pH < 7.35 or > 7.45; Decreased oxygen saturation (<90% room air or < 95% on oxygen); PCO2 > 50 mm Hg; PO2 < 60 mm Hg; Labored or rapid respirations ARDS: Dx Criteria [[employer]deavor ARDS]: Respiratory symptoms within one week of a known clinical insult (e.g. shock, infection, surgery, trauma) Bilateral opacities in CXR/Chest CT not due to CHF or fluid THANK YOU! RICHARD (This form is maintained as a part of the permanent medical record) 2015 [employer]. All Rights Reserved [email or web address] [phone] [email or web address]
[2019-03-12 14:34] LABS: FSP-Qualitative ABNORMAL (Normal); FSP-Semiquantitative >=5 & <20 mcg/mL (Less than 5)
[2019-03-12 14:36] LABS: Platelet Count 85 thou/uL (130-400)
--- NOTE | 2019-03-12 15:08 | PDOC.HOSPP ---
- Subjective Encounter Date: 03/12/19 Encounter Time: 12:30 Subjective: on vent, not in distress mother at bedside - Objective Vital Signs & Weight: Vital Signs (12 hours) Temp Pulse Resp BP Pulse Ox 03/12/19 14:00 20 03/12/19 13:29 81 119/63 03/12/19 12:00 99.8 F H 20 03/12/19 11:09 76 120/72 03/12/19 10:00 30 H 03/12/19 08:00 30 H 100 03/12/19 07:52 81 130/62 03/12/19 07:00 99.9 F H 03/12/19 06:00 30 H 03/12/19 04:00 98.8 F 30 H Weight Admit Weight 231 lb Weight 231 lb 3 oz Most Recent Monitor Data Heart Rate from ECG 83 NIBP 138/79 NIBP BP-Mean 98 Respiration from ECG 18 SpO2 100 I&O: 03/11/19 03/12/19 03/13/19 06:59 06:59 06:59 Intake Total 3665 6533.8 1220 Output Total 1830 2505 860 Balance 1835 4028.8 360 Result Diagrams: 03/12/19 13:06 03/12/19 04:10 Additional Labs: Accuchecks 03/12/19 03/12/19 03/12/19 14:11 13:08 12:15 POC Glucose 107 110 132 H 03/12/19 03/12/19 03/12/19 11:15 10:19 09:17 POC Glucose 191 H 228 H 310 H 03/12/19 03/12/19 03/12/19 08:09 07:07 06:03 POC Glucose 281 H 237 H 182 H 03/12/19 03/12/19 03/12/19 04:58 04:13 03:03 POC Glucose 124 H 116 H 126 H 03/12/19 03/12/19 03/12/19 01:56 01:17 00:21 POC Glucose 158 H 151 H 192 H 03/11/19 03/11/19 03/11/19 23:04 22:11 21:05 POC Glucose 257 H 260 H 272 H 03/11/19 03/11/19 03/11/19 20:10 17:54 16:25 POC Glucose 237 H 166 H 146 H 03/11/19 03/11/19 03/11/19 15:02 14:26 13:22 POC Glucose 150 H 153 H 128 H Hospitalist ROS - Medication Medications: Active Medications Generic Name Dose Route Start Last Admin Trade Name Freq PRN Reason Stop Dose Admin Piperacillin Sod/Tazobactam 100 mls @ 200 mls/hr 03/10/19 23:00 03/12/19 11: 09 Sod 4.5 gm/ Sodium Chloride IVPB 100 mls 0500,1100,1700,2300 LENA Administration Fentanyl Citrate 2,000 mcg/ 100 mls @ 0 mls/hr 03/11/19 13:43 03/11/19 19:24 Sodium Chloride IV 04/10/19 13:43 100 mls INF LENA Administration Protocol Per Protocol Sodium Chloride 1,000 mls @ 150 mls/hr 03/12/19 12:30 03/12/19 12:47 Normal Saline 0.9% IV 1,000 mls .Q6H40M LENA Administration Lamotrigine 200 mg 03/10/19 21:00 03/11/19 23:12 Lamictal PO 200 mg HS LENA Administration Metoclopramide HCl 10 mg 03/11/19 12:00 03/12/19 12:10 Reglan IVP 10 mg Q6HR LENA Administration Nortriptyline HCl 50 mg 03/11/19 21:00 03/11/19 23:12 Pamelor PO 50 mg HS LENA Administration Potassium Chloride 40 meq 03/12/19 12:30 03/12/19 12:43 Klor-Con PO 03/13/19 00:31 Not Given Q6H LENA Propofol 1,000 mg 03/11/19 13:43 03/12/19 09:28 Diprivan IV 04/10/19 13:43 1,000 mg INF PRN Administration TO ACHIEVE GOAL RASS Protocol Vecuronium [place] 10 mg 03/11/19 00:21 03/12/19 04:02 Norcuron IV 10 mg Q1H PRN Administration Agitation - Exam General Appearance: ill appearing Eye: PERRL, anicteric sclera ENT: no oropharyngeal lesions, moist mucosa Neck: supple, no JVD Heart: RRR, no murmur Respiratory: no wheezes, no rales, rhonchi Gastrointestinal: soft, non-tender, non-distended, normal bowel sounds Extremities: no cyanosis, 1+ LE edema Neurological: cranial nerve grossly intact, no focal deficits Hosp A/P (1) DKA, type 2 Code(s): E11.10 - TYPE 2 DIABETES MELLITUS WITH KETOACIDOSIS WITHOUT COMA Status: Acute Qualifiers: Diabetes mellitus detention insulin use: without detention use Diabetes mellitus complication detail: without coma Qualified Code(s): E11.10 - Type 2 diabetes mellitus with ketoacidosis without coma (2) POLO (acute kidney injury) Code(s): N17.9 - ACUTE KIDNEY FAILURE, UNSPECIFIED Status: Acute (3) Sepsis Code(s): A41.9 - SEPSIS, UNSPECIFIED ORGANISM Status: Acute Qualifiers: Sepsis type: sepsis due to unspecified organism Sepsis acute organ dysfunction status: with acute organ dysfunction Severe sepsis acute organ dysfunction type: acute renal failure Severe sepsis shock status: without septic shock (4) s/p cardiac arrest Status: Acute (5) Obesity (BMI 30-39.9) Code(s): E66.9 - OBESITY, UNSPECIFIED Status: Chronic (6) Schizoaffective disorder Code(s): F25.9 - SCHIZOAFFECTIVE DISORDER, UNSPECIFIED Status: Chronic Qualifiers: Schizoaffective disorder type: unspecified Qualified Code(s): F25.9 - Schizoaffective disorder, unspecified (7) Acute respiratory failure with hypoxia Code(s): J96.01 - ACUTE RESPIRATORY FAILURE WITH HYPOXIA Status: Acute - Plan Developed VF/VT/asystole and arrest with CPR for 15 minutes on 03/10/2019. Intubated with arrest. DKA is mostly resolved, stop protocol, 1/2NS at 150mlshr, lantus 10 u bid with humalog coverage Continue zosyn, lamictal, nortriptyline, clozaril echo shows normal ef and wall motion await cultures discussed with mom at bedside weaning per pulm adv renal function is holding up with no further improvement despite +ve fluid balance.
--- NOTE | 2019-03-12 15:49 | PRG ---
DATE OF SERVICE: 03/12/2019 SUBJECTIVE: Mr. Lopez had a sedation lightened, but he starts trying to get out of bed, so he is going to be kept sedated today. OBJECTIVE: VITAL SIGNS: Respiratory rates in the low 20s, heart rates in 80s, blood pressure 143/84. LUNGS: Remarkable for equal breath sounds. HEART: Regular rhythm. ABDOMEN: Soft. EXTREMITIES: Without asymmetry. He does have edema now. Intake and output not including the emergency room is positive 6 L. I believe he had about 5 L in the ER. LABORATORY DATA: White count 6.2, hemoglobin 11.1, and platelets 85. Sodium 133, potassium 3.3, chloride 106, bicarb 16, BUN 47, and creatinine 2.51. PH 7.46, CO2 of pO2 of 150, his rate was turned down from 30 to 20. IMPRESSION: 1. Status post cardiorespiratory arrest associated with diabetic ketoacidosis. 2. Normal left ventricular systolic function by echocardiogram. 3. Acute on chronic kidney disease. I suspect he has chronically been dehydrated as he has developed diabetes. Hopefully, this will start gradually improving. I will have Nephrology see him. I have called the room service food service attendant. Met with mom and answered all the questions. Chest x-ray has haziness in both lung bases. This could be related to effusions or atelectasis. We will not transport him down for CT imaging. At this point, I do not feel bronchoscopy is indicated. We will repeat a radiograph in the morning and considering for extubation on a day-to-day basis. CRITICAL CARE TIME: 30 minutes. Job ID: [id number]
[2019-03-12 18:30] LABS: Bilirubin Negative (Negative); Blood, Urine Trace (Negative); Clarity Turbid (Clear); Glucose, Urine (Dipstick) 30 mg/dL (Negative); Leukocyte Negative Leu/uL (Negative); Nitrite Negative (Negative); Protein, Urine (Dipstick) 30 mg/dL (Neg-Trace); RBC/HPF 0-3 HPF (0-3); Squamous Epithelial 0-3 HPF (0-3); Urobilinogen Normal mg/dL (Less than 2); WBC/HPF 0-3 HPF (0-3)
[2019-03-12 18:42] LABS: Bacteria/HPF 2+ HPF (None Seen)
[2019-03-12 18:43] LABS: Calcium Oxalate Crystals 1+ HPF (None Seen)
[2019-03-12 18:47] LABS: Creatinine, Urine 56.32 mg/dL (63-166); Protein, Urine Random Quant 34 mg/dL (1-14); Sodium, Urine Less than 20 mmol/L (Not Available)
[2019-03-12] MEDS: Apixaban 2.5 MG TAB PO SCH (20:43)
[2019-03-12] MEDS: Insulin Glargine 10 UNITS in Pre-Filled Syringe 1 EACH SC SCH (20:43)
[2019-03-12] MEDS: lamoTRIgine 100 MG TAB PO SCH (20:43)
[2019-03-12] MEDS: Nortriptyline HCl 25 MG CAP PO SCH (20:44)
[2019-03-12] MEDS ORDERED: Acetaminophen 650 MG Suppository PR PRN (23:13)
--- NOTE | 2019-03-13 00:44 | CON ---
DATE OF CONSULTATION: HISTORY OF PRESENT ILLNESS: Mr. Lopez is a 28-year-old male, who was initially found to be confused at home and presented today here for mental status change. During the initial evaluation, the patient was noted to be in DKA. The confusion most likely is secondary to a metabolic encephalopathy secondary to his DKA. We are now being consulted for his ? acute kidney injury/chronic renal failure. I have been reviewing the records and I do not see any previous creatinine done with this patient. The mother on close conversation is not aware of his son having significant renal disorder. REVIEW OF SYSTEMS: Not obtainable since the patient is sedated and intubated. However, based on the history, he did not present with any chest pain, shortness of breath, or abdominal pain. HOME MEDICATIONS: Included, 1. Nortriptyline 50 mg at bedtime. 2. Alprazolam 0.5 mg p.o. at bedtime. 3. Lamotrigine 200 mg at bedtime. 4. Clozapine 100 mg p.o. daily. HOSPITAL MEDICATIONS: Include, 1. Normal saline 150 mL/h. 2. Eliquis 2.5 mg p.o. b.i.d. 3. Humulin insulin drip. 4. Zosyn 4.5 g IV q.4. 5. KCl p.r.n. 6. Propofol IV drip. PAST MEDICAL HISTORY: 1. History of mild intellectual disability. 2. Neurodegenerative disorder. 3. Schizoaffective disorder. 4. Recent diagnosis of diabetes mellitus-type 1. 5. History of pituitary dwarfism-supplemented growth hormones. PAST SURGICAL HISTORY: Status post bilateral ear tube placement as a child. SOCIAL HISTORY: The patient lives in [place]. He lives with his brother. He is supported by the [employer] living [facility]. He works with [employer]. Education, high school. No history of smoking. Occasional alcohol. No IV drug abuse. Please note, the patient is adopted. FAMILY HISTORY: Positive family history of ESRD. ALLERGIES: NO KNOWN DRUG ALLERGIES. TRAUMA: None. IMMUNIZATIONS: Up-to-date. HOSPITALIZATIONS: Please see past medical history. PHYSICAL EXAMINATION: VITAL SIGNS: Blood pressure is 133/80 with heart rate 79, respiratory rate 20, and O2 saturation 100%. GENERAL: The patient is sedated and intubated on ventilator support. SKIN: Adequate turgor. HEENT: He has pinkish conjunctivae. Anicteric sclerae. NECK: No neck mass. No carotid bruits. No JVD. CHEST: No deformities. LUNGS: Clear breath sounds. No wheezing. No crackles. HEART: Normal sinus rhythm. No murmur. No gallops. No rubs. ABDOMEN: Globular, soft, nontender. No masses. EXTREMITIES: No edema. No deformities. NEUROLOGIC: Sedated and intubated. LABORATORY DATA: Laboratories of March 12, 2019; white count 6.2, hemoglobin 11.1, hematocrit 31.6. March 12, 2019; sodium 133, potassium 2.3, chloride 106, carbon dioxide 16, BUN 47, creatinine 2.51, glucose 110, calcium 7.4. Further review of his serum creatinine shows the following March 11, 2019; BUN 24, creatinine 2.16. March 10, 2019; creatinine 2.53. March 10, 2019 at 1650 hours; creatinine 3.2. January 22, 2019, creatinine was reported at 0.87. Cardiac echo on March 11, 2019, normal EF. March 10, 2019, CT scan of the abdomen and pelvis, kidneys were noted to be unremarkable with no hydronephrosis or any masses. Chest x-ray of March 12, 2019, shows nonspecific pulmonary parenchymal opacity bilaterally. Urinalysis of March 10, 2019, specific gravity was 1.021, ketone 100, urine blood 3+, urine protein was 50, urine rbc 0 to 3, wbc 0 to 3, no casts noted. ASSESSMENT AND PLAN: 1. Acute kidney injury, consider the possibility that this is hemodynamically-mediated renal dysfunction related to his underlying volume depletion from his diabetic ketoacidosis. Urine sediment back on March 10, 2019, was relatively benign. There was no evidence of a pigmented granular casts. The urine specific gravity was quite concentrated at the value of 1.021. He has received aggressive volume repletion to correct the possible volume depletion that is also causing his acute kidney injury. 2. For the moment, agree with current empiric volume repletion. Currently, on normal saline at 150 mL/h. We will be reviewing a repeat urinalysis to see if there is any evidence of acute tubular necrosis to explain the unimproved renal function. In addition, urine chemistries have been ordered. I will also be semi-quantitating his protein excretion. Please note that his last creatinine back in January 2019, was within normal, making this acute kidney injury more likely a hemodynamically- mediated renal dysfunction. Imaging of the kidneys was said to be within normal. Overall, agree with current management. Hold off any STAN inhibitors or diuretics for the moment. Continue gentle volume repletion. There is no indication for any dialytic intervention with this patient at the present time. 3. For the moment, agree with current management. Job ID: [id number]
[2019-03-13] MEDS ORDERED: HUMULIN R 100 UNITS in Sodium Chloride 0.9% 100 ML IVPB SCH (01:45)
[2019-03-13] MEDS: fentaNYL Citrate/PF 2,000 MCG in Sodium Chloride 0.9% 60 ML IV SCH (02:29)
[2019-03-13] MEDS: Sodium Chloride 0.9% 1,000 ML IV SCH ×3 (02:30→15:09)
[2019-03-13] MEDS: Propofol 1,000 MG/100 ML VIAL IV PRN ×3 (03:40→13:13)
[2019-03-13 04:35] LABS: Anion Gap 11 mmol/L (10-20); BUN (Urea Nitrogen) 39 mg/dL (8.9-20.6); Calc. Creatinine Clearance 68 mL/min (70-130); Calcium 7.6 mg/dL (7.8-10.44); Carbon Dioxide 20 mmol/L (22-29); Chloride 111 mmol/L (98-107); Estimated GFR-MDRD 33; Glucose 175 mg/dL (70-105); Sodium 139 mmol/L (136-145)
[2019-03-13 04:41] LABS: Potassium 2.8 mmol/L (3.5-5.1)
[2019-03-13 05:01] LABS: Band 30 % (5-11); Eosinophils 7 % (0-10); Lymphocytes 19 % (21-51); MDiff Complete? YES; Mean Corpuscular HGB CONC 34.8 g/dL (32.0-36.0); Mean Corpuscular Hemoglobin 27.8 pg (27.0-31.0); Mean Platelet Volume 10.7 fL (7.4-10.4); Metamyelocyte 3 % (0-0); Monocytes 5 % (0-10); Myelocyte 1 % (0-0); Neutrophil 33 % (42-75); Platelet Count 101 thou/uL (130-400); Platelet Morphology Comment Appears Decreased; RBC Distribution Width 12.6 % (11.5-14.5); RBC Morphology Normal; Reactive Lymphocytes 2 % (0-10); Red Blood Cell (RBC) Count 3.95 mill/uL (4.70-6.10); White Blood Cell (WBC) Count 8.3 thou/uL (4.8-10.8)
[2019-03-13] MEDS: Vecuronium 10 MG VIAL IV PRN (05:17)
[2019-03-13] MEDS: Metoclopramide HCl 10 MG/2 ML VIAL IVP SCH ×4 (05:17→23:10)
[2019-03-13] MEDS: Piperacillin/Tazobactam 4.5 GM in Sodium Chloride 0.9% 100 ML IVPB SCH ×4 (05:17→23:10)
[2019-03-13 08:09] LABS: Actual Bicarbonate (HCO3a) 17.5 mEq/L (22-28); Base Excess (BEa) -7.1 mEq/L (-2.0 to +3.0); CO2 Tension 32.3 mmHg (35.0-45.0); Calcium, Ionized 1.14 mmol/L (1.12-1.30); Carboxyhemoglobin (COHb) 0.8 gm% (0.0-3.0); Hemoglobin (Hb) 11.4 g/dL (14.0-18.0); O2 Tension (PaO2) 72.3 mmHg (80.0-100.0); Potassium - ABG Lab 2.52 mmol/L (3.70-5.30); pH, Arterial 7.35 (7.35-7.45)
[2019-03-13 08:12] LABS: ALV-art Gradient 101.225 (0-20); Puncture Site L.R.
[2019-03-13] MEDS ORDERED: Potassium Chloride 40 MEQ in Premix Bag 1 BAG IVPB SCH (08:45)
--- NOTE | 2019-03-13 09:11 | RAD ---
PORTABLE CHEST: INDICATIONS: CCU followup. On ventilator. COMPARISON: 03/12/2019 FINDINGS: ET tube, NG tube and central line are unchanged. There is a new hazy opacification in the right upper lung. Overall poor inspiration. Opacification in the left lung base again noted, consistent with lef t basilar atelectasis or infiltrate. IMPRESSION: Poor inspiration degrades the study. There are new areas of opacity in the right upper lung field on the current examination. POS: DILLON
--- NOTE | 2019-03-13 09:12 | PRG ---
DATE OF SERVICE: 03/13/2019 SERVICE: Renal Medicine. SUBJECTIVE: Mr. Lopez is a 28-year-old male who was admitted for mental status change with a subsequent diagnosis of DKA. We are evaluating this patient for his acute kidney injury. Initially, he was felt to be volume depleted. Empiric volume repletion has been given. He has received several liters of IV fluid; however, the concern is that the renal function has not normalized. I did repeat another urinalysis and urine chemistries yesterday and his acute kidney injury suggestive of hemodynamically-mediated renal dysfunction. He has a low urine sodium. In addition, urine sediment was relatively benign with no evidence of acute tubular necrosis. Due to the significant amount of fluid he has received, he may now be third-spacing. For this reason, albumin will be given at 25 g IV q.6. No acute events noted yesterday. OBJECTIVE: VITAL SIGNS: Blood pressure was noted at 133/71, heart rate 78, respiratory rate 25, and pulse ox 100%. GENERAL: The patient was sedated, intubated on ventilator support. SKIN: Adequate turgor. HEENT: He has pinkish conjunctivae. Anicteric sclerae. NECK: No neck mass. No carotid bruits. No JVD. CHEST: No deformities. LUNGS: Harsh breath sounds. HEART: Normal sinus rhythm. No murmur. No gallops. No rubs. ABDOMEN: Globular, soft, nontender. No masses. EXTREMITIES: Trace edema. MEDICATIONS: Medications of March 13, 2019, were reviewed. LABORATORY DATA: Laboratories of March 13, 2019; white count 8.3, hemoglobin 11. Sodium 139, potassium 2.8, chloride 111, carbon dioxide 20, BUN 39, creatinine 2.39, glucose 175, and calcium 7.6. Urinalysis of March 12, 2019; specific gravity 1.012, rbc's 0 to 3, wbc 0 to 3 , protein is 30. Urine sodium less than 20, urine creatinine 56.32. Urine protein is 34. ASSESSMENT AND PLAN: 1. Acute kidney injury - review of his laboratories suggests he may simply have hemodynamically-mediated renal dysfunction as suggested by a relatively benign urine sediment, and the urine sodium is less than 20. However, his renal function is only minimally improved from yesterday with IV hydration. The concern is this patient might also be third-spacing. For that reason, I have started him on albumin infusion 25 g IV q.6. It is not unusual for some people to develop some mild acute tubular necrosis or what we call a patchy acute tubular necrosis and that may at the same time reflect urine sodium that is quite low. For the moment, we will continue to treat him empirically as an acute kidney injury that is hemodynamically-mediated renal dysfunction. He is still making urine. His urine output in the last 24 hours showed a volume of 2.7 L with an intake of 2.4 L. 2. Overall, agree with current management. There is no indication for any dialytic intervention. We will recheck another basic metabolic profile in a.m. 3. Diabetic ketoacidosis, clinically improving. Job ID: [id number] MTDD
[2019-03-13] MEDS: Apixaban 2.5 MG TAB PO SCH ×2 (09:33→20:36)
[2019-03-13] MEDS: Insulin Glargine 10 UNITS in Pre-Filled Syringe 1 EACH SC SCH ×2 (09:34→23:04)
[2019-03-13] MEDS ORDERED: Sodium Chloride 0.9% (PF) 10 ML VIAL FS PRN (11:49)
[2019-03-13] MEDS: Albumin 25% 25 GM/100 ML BOT IVPB SCH ×3 (12:06→23:14)
--- NOTE | 2019-03-13 13:42 | PDOC.HOSPP ---
- Subjective Encounter Date: 03/13/19 Encounter Time: 12:00 Subjective: is on vent, sedated not in distress - Objective Vital Signs & Weight: Vital Signs (12 hours) Temp Pulse Resp BP Pulse Ox 03/13/19 13:05 79 129/78 03/13/19 12:00 99.4 F 03/13/19 10:34 75 122/74 03/13/19 10:00 20 03/13/19 08:00 20 100 03/13/19 07:48 71 149/83 H 03/13/19 07:00 99.1 F 03/13/19 06:00 20 03/13/19 04:00 99.1 F 03/13/19 02:26 70 127/78 03/13/19 02:00 20 Weight Admit Weight 231 lb Weight 231 lb 3 oz Most Recent Monitor Data Heart Rate from ECG 78 NIBP 129/78 NIBP BP-Mean 95 Respiration from ECG 19 SpO2 100 I&O: 03/12/19 03/13/19 03/14/19 06:59 06:59 06:59 Intake Total 6533.8 2454.4 200 Output Total 2505 4325 830 Balance 4028.8 -1870.6 -630 Result Diagrams: 03/13/19 04:05 03/13/19 03:30 Additional Labs: Accuchecks 03/13/19 03/13/19 03/13/19 13:09 12:35 12:14 POC Glucose 130 H 122 H 132 H 03/13/19 03/13/19 03/13/19 11:00 10:05 09:16 POC Glucose 140 H 154 H 167 H 03/13/19 03/13/19 03/13/19 08:14 07:17 06:04 POC Glucose 182 H 174 H 166 H 03/13/19 03/13/19 03/13/19 05:15 04:10 03:07 POC Glucose 164 H 172 H 162 H 03/13/19 03/13/19 03/12/19 02:03 01:08 23:57 POC Glucose 172 H 170 H 179 H 03/12/19 03/12/19 03/12/19 23:02 22:03 21:04 POC Glucose 195 H 197 H 200 H 03/12/19 03/12/19 03/12/19 19:59 19:02 18:11 POC Glucose 229 H 199 H 191 H 03/12/19 03/12/19 03/12/19 17:07 16:09 15:14 POC Glucose 178 H 161 H 137 H 03/12/19 14:11 POC Glucose 107 Hospitalist ROS - Medication Medications: Active Medications Generic Name Dose Route Start Last Admin Trade Name Freq PRN Reason Stop Dose Admin Albumin Human 25 gm 03/13/19 12:00 03/13/19 12:06 Albumin 25% IVPB 03/14/19 12:01 25 gm Q6HR LENA Administration Apixaban 2.5 mg 03/12/19 21:00 03/13/19 09:33 Eliquis PO 2.5 mg BID LENA Administration Piperacillin Sod/Tazobactam 100 mls @ 200 mls/hr 03/10/19 23:00 03/13/19 10: 32 Sod 4.5 gm/ Sodium Chloride IVPB 100 mls 0500,1100,1700,2300 LENA Administration Fentanyl Citrate 2,000 mcg/ 100 mls @ 0 mls/hr 03/11/19 13:43 03/13/19 02:29 Sodium Chloride IV 04/10/19 13:43 100 mls INF LENA Administration Protocol Per Protocol Sodium Chloride 1,000 mls @ 150 mls/hr 03/12/19 12:30 03/13/19 09:34 Normal Saline 0.9% IV 1,000 mls .Q6H40M LENA Administration Insulin Glargine 10 units/ 0.1 mls @ 0 mls/hr 03/12/19 21:00 03/13/19 09:34 Miscellaneous Medication SC 0.1 mls BID LENA Administration Lamotrigine 200 mg 03/10/19 21:00 03/12/19 20:43 Lamictal PO 200 mg HS LENA Administration Lorazepam 2 mg 03/11/19 13:43 03/12/19 19:32 Ativan SLOW IVP 04/10/19 13:43 2 mg Q1H PRN Administration Breakthrough agitation Metoclopramide HCl 10 mg 03/11/19 12:00 03/13/19 12:06 Reglan IVP 10 mg Q6HR LENA Administration Nortriptyline HCl 50 mg 03/11/19 21:00 03/12/19 20:44 Pamelor PO 50 mg HS LENA Administration Propofol 1,000 mg 03/11/19 13:43 03/13/19 13:13 Diprivan IV 04/10/19 13:43 1,000 mg INF PRN Administration TO ACHIEVE GOAL RASS Protocol Senna/Docusate Sodium 2 tab 03/10/19 18:58 03/13/19 12:05 Senokot S PO 2 tab BIDPRN PRN Administration Constipation Vecuronium [place] 10 mg 03/11/19 00:21 03/13/19 05:17 Norcuron IV 10 mg Q1H PRN Administration Agitation - Exam General Appearance: ill appearing Eye: PERRL, anicteric sclera ENT: no oropharyngeal lesions, moist mucosa Neck: supple, no JVD Heart: RRR, no murmur Respiratory: no wheezes, no rales Gastrointestinal: soft, non-tender, non-distended, normal bowel sounds Extremities: no cyanosis, 1+ LE edema Neurological: cranial nerve grossly intact, no focal deficits Hosp A/P (1) DKA, type 2 Code(s): E11.10 - TYPE 2 DIABETES MELLITUS WITH KETOACIDOSIS WITHOUT COMA Status: Resolved Qualifiers: Diabetes mellitus chcf insulin use: without chcf use Diabetes mellitus complication detail: without coma Qualified Code(s): E11.10 - Type 2 diabetes mellitus with ketoacidosis without coma (2) POLO (acute kidney injury) Code(s): N17.9 - ACUTE KIDNEY FAILURE, UNSPECIFIED Status: Acute (3) Sepsis Code(s): A41.9 - SEPSIS, UNSPECIFIED ORGANISM Status: Acute Qualifiers: Sepsis type: sepsis due to unspecified organism Sepsis acute organ dysfunction status: with acute organ dysfunction Severe sepsis acute organ dysfunction type: acute renal failure Severe sepsis shock status: without septic shock (4) s/p cardiac arrest Status: Acute (5) Obesity (BMI 30-39.9) Code(s): E66.9 - OBESITY, UNSPECIFIED Status: Chronic (6) Schizoaffective disorder Code(s): F25.9 - SCHIZOAFFECTIVE DISORDER, UNSPECIFIED Status: Chronic Qualifiers: Schizoaffective disorder type: unspecified Qualified Code(s): F25.9 - Schizoaffective disorder, unspecified (7) Acute respiratory failure with hypoxia Code(s): J96.01 - ACUTE RESPIRATORY FAILURE WITH HYPOXIA Status: Acute - Plan Developed VF/VT/asystole and arrest with CPR for 15 minutes on 03/10/2019. Intubated with arrest. DKA is mostly resolved, suggest stop protocol, 1/2NS at 150mlshr, lantus 10 u bid with humalog coverage Continue zosyn, lamictal, nortriptyline, clozaril echo shows normal ef and wall motion await cultures weaning per pulm adv renal function is holding up with no further improvement despite +ve fluid balance. had alb infusions per .
[2019-03-13] MEDS: Lorazepam 2 MG/ML VIAL SLOW IVP PRN ×2 (15:08→18:05)
[2019-03-13] MEDS: HumaLOG 300 UNITS/3 ML VIAL SC PRN (18:22)
--- NOTE | 2019-03-13 19:32 | PRG ---
DATE OF SERVICE: 03/13/2019 SUBJECTIVE: Hao Lopez remains sedated. He is in no distress. OBJECTIVE: VITAL SIGNS: He is afebrile, heart rates in the 70s, blood pressure 134/89. LUNGS: Unchanged. HEART: Unchanged ABDOMEN: Unchanged. EXTREMITIES: Without edema. LABORATORY DATA: White count 8.3, hemoglobin 11.0, platelets 101,000. Electrolytes remarkable for sodium 139, potassium 2.8, chloride 111, bicarb 20, BUN 39, creatinine 2.39. IMPRESSION: 1. Diabetic ketoacidosis. 2. New onset diabetes. 3. Respiratory failure after cardiorespiratory arrest. 4. Normal left ventricular systolic function. 5. Hypokalemia. 6. Hyperchloremic acidosis with an anion gap of 8 now. I suspect his creatinine has been elevated for some time. Other issues with regard to his healthcare including schizophrenia, progressive neurodegenerative disease, it was never classified and apparently stabilized. His mom was told that he may progress at a later date. This is based on serial MRIs. He also probably has chronic kidney disease and a learning disability. All this makes it more difficult to take care of him. Hopefully, we can cut his ventilator support back today and then tomorrow consider spontaneous breathing trial. He still has evidence of bilateral effusions and atelectasis on chest x-ray, but at 28 years of age, he may actually be able to ventilate without much difficulty as long as he has a good cough. CRITICAL CARE TIME: 30 minutes. Job ID: [id number]
[2019-03-13] MEDS: Nortriptyline HCl 25 MG CAP PO SCH (20:36)
[2019-03-13] MEDS: Pantoprazole 40 MG VIAL IVP SCH (20:36)
[2019-03-13] MEDS: lamoTRIgine 100 MG TAB PO SCH (20:36)
[2019-03-14] MEDS: fentaNYL Citrate/PF 2,000 MCG in Sodium Chloride 0.9% 60 ML IV SCH (01:35)
[2019-03-14] MEDS: Sodium Chloride 0.9% 1,000 ML IV SCH ×3 (02:16→13:38)
[2019-03-14 04:04] LABS: Anion Gap 10 mmol/L (10-20); BUN (Urea Nitrogen) 33 mg/dL (8.9-20.6); Calc. Creatinine Clearance 76 mL/min (70-130); Calcium 7.7 mg/dL (7.8-10.44); Carbon Dioxide 20 mmol/L (22-29); Chloride 115 mmol/L (98-107); Estimated GFR-MDRD 37; Glucose 166 mg/dL (70-105); Sodium 142 mmol/L (136-145)
[2019-03-14 04:07] LABS: Potassium 2.9 mmol/L (3.5-5.1)
[2019-03-14 04:58] LABS: Band 25 % (5-11); Eosinophils 2 % (0-10); Hemoglobin 10.7 g/dL (14.0-18.0); Lymphocytes 22 % (21-51); MDiff Complete? YES; Mean Corpuscular HGB CONC 34.7 g/dL (32.0-36.0); Mean Corpuscular Hemoglobin 28.2 pg (27.0-31.0); Mean Corpuscular Volume 81.3 fL (78.0-98.0); Mean Platelet Volume 9.8 fL (7.4-10.4); Monocytes 2 % (0-10); Neutrophil 49 % (42-75); Platelet Count 126 thou/uL (130-400); RBC Distribution Width 12.9 % (11.5-14.5); Red Blood Cell (RBC) Count 3.78 mill/uL (4.70-6.10); White Blood Cell (WBC) Count 6.5 thou/uL (4.8-10.8)
[2019-03-14] MEDS: Albumin 25% 25 GM/100 ML BOT IVPB SCH ×2 (05:03→11:36)
[2019-03-14] MEDS: Metoclopramide HCl 10 MG/2 ML VIAL IVP SCH ×2 (05:04→19:06)
[2019-03-14] MEDS: Piperacillin/Tazobactam 4.5 GM in Sodium Chloride 0.9% 100 ML IVPB SCH ×2 (05:04→10:33)
[2019-03-14] MEDS: HumaLOG 300 UNITS/3 ML VIAL SC PRN ×2 (06:18→18:32)
[2019-03-14 07:21] LABS: Actual Bicarbonate (HCO3a) 17.9 mEq/L (22-28); Base Excess (BEa) -7.6 mEq/L (-2.0 to +3.0); CO2 Tension 36.2 mmHg (35.0-45.0); Calcium, Ionized 1.14 mmol/L (1.12-1.30); Carboxyhemoglobin (COHb) 0.4 gm% (0.0-3.0); O2 Tension (PaO2) 110.5 mmHg (80.0-100.0); Potassium - ABG Lab 2.74 mmol/L (3.70-5.30); pH, Arterial 7.31 (7.35-7.45)
[2019-03-14 07:25] LABS: Puncture Site RRA
--- NOTE | 2019-03-14 08:07 | RAD ---
EXAM: XR Chest 1 View Portable PROVIDED CLINICAL HISTORY: On ventilator. Follow-up evaluation. COMPARISON: 03/13/2019 FINDINGS: Endotracheal tube, nasogastric tube, and left internal jugular vein central venous catheter remains i n place. Bilateral perihilar interstitial densities are again seen. No pleural fluid is seen. There is improved aeration in the left lung compared to prior exam. Persistent elevation right hemidiaphrag m is present. No other interval change. IMPRESSION: 1. Bilateral perihilar interstitial opacities which may be related to bilateral pulmonary edema versu s infectious process. 2. Improvement in aeration at the left lung base. Suggested opacity in the right upper lung zone also appears improved. 3. Lines and tubes stable in position.
[2019-03-14] MEDS: Apixaban 2.5 MG TAB PO SCH (08:44)
[2019-03-14] MEDS ORDERED: Sodium Chloride 0.9% 1,000 ML IV SCH (09:00)
[2019-03-14] MEDS ORDERED: Potassium Chloride 40 MEQ in Premix Bag 1 BAG IVPB SCH (09:00)
[2019-03-14] MEDS: Insulin Glargine 10 UNITS in Pre-Filled Syringe 1 EACH SC SCH ×2 (09:11→21:02)
--- NOTE | 2019-03-14 09:43 | PRG ---
DATE OF SERVICE: 03/14/2019 SUBJECTIVE: Mr. Lopez is a 28-year-old male who was admitted for DKA and being followed up by the Renal Service for management of his acute kidney injury. His acute kidney injury secondary to possible hemodynamically-mediated dysfunction. He has been receiving IV fluid-crystalloids and colloids. He is still diuresing and his I and O showed 2 L in the last 24 hours with an input of 4.6 L. No acute events noted. OBJECTIVE: VITAL SIGNS: Blood pressure is 175/116, heart rate is 59, respiratory rate 11, and pulse ox 99%. GENERAL: The patient is arousable, intubated on ventilator support. SKIN: Adequate turgor. HEENT: Pinkish conjunctivae. Anicteric sclerae. NECK: No neck mass. No carotid bruits. No JVD. CHEST: No deformities. LUNGS: Decreased breath sounds. HEART: Normal sinus rhythm. No murmurs. No gallops. No rubs. ABDOMEN: Globular, soft, and nontender. No masses. EXTREMITIES: Trace edema. MEDICATIONS: Medications of March 14, 2019 were reviewed. LABORATORY DATA: Laboratories of March 14, 2019; white count 6.5, hemoglobin 10.7. Sodium 142, potassium 2.9, chloride 115, carbon dioxide 20, BUN 33, creatinine 2.14, glucose 116, and calcium 7.7. ASSESSMENT AND PLAN: 1. Acute kidney injury - superimposed hemodynamically-mediated dysfunction. Slowly improving. Creatinine noted at 2.14 and yesterday it was 2.39, prior to that it was 2.51. Continue current management. Due to the possible development of third-spacing, we will decrease normal saline from 150 to 100 mL an hour. We will continue albumin infusion 25 g IV q.6. There is no indication for any dialytic intervention. If needed, we can always start diuretics with this patient. 2. Diabetic ketoacidosis, clinically improving. 3. Overall agree with current management. Job ID: [id number]
[2019-03-14] MEDS ORDERED: Albumin 25% 25 GM/100 ML BOT IVPB SCH (12:00)
[2019-03-14] MEDS: Acetaminophen 325 MG TAB PO PRN (13:38)
--- NOTE | 2019-03-14 16:14 | PDOC.HOSPP ---
- Subjective Encounter Date: 03/14/19 Encounter Time: 12:00 Subjective: on vent, not in distress mom at bedside is seen moving extremities - Objective Vital Signs & Weight: Vital Signs (12 hours) Temp Resp Pulse Ox 03/14/19 12:00 98.7 F 21 H 03/14/19 10:00 20 03/14/19 08:00 98.4 F 20 96 03/14/19 06:00 21 H Weight Admit Weight 231 lb Weight 222 lb 0.088 oz Most Recent Monitor Data Heart Rate from ECG 78 NIBP 165/110 NIBP BP-Mean 128 Respiration from ECG 22 SpO2 100 I&O: 03/13/19 03/14/19 03/15/19 06:59 06:59 06:59 Intake Total 2454.4 4690.4 271.3 Output Total 4325 3140 505 Balance -1870.6 1550.4 -233.7 Result Diagrams: 03/14/19 03:25 03/14/19 03:25 Additional Labs: Accuchecks 03/14/19 03/14/19 03/13/19 11:44 06:19 23:07 POC Glucose 130 H 162 H 147 H 03/13/19 18:05 POC Glucose 167 H Hospitalist ROS - Medication Medications: Active Medications Generic Name Dose Route Start Last Admin Trade Name Freq PRN Reason Stop Dose Admin Acetaminophen 650 mg 03/10/19 18:58 03/14/19 13:38 Tylenol PO 650 mg Q4H PRN Administration Headache/Fever/Mild Pain (1-3) Insulin Glargine 10 units/ 0.1 mls @ 0 mls/hr 03/12/19 21:00 03/14/19 09:11 Miscellaneous Medication SC 0.1 mls BID LENA Administration Dexmedetomidine HCl 400 mcg/ 100 mls @ 0 mls/hr 03/13/19 17:15 03/14/19 10:19 Sodium Chloride IVPB 100 mls INF LENA Administration Protocol Per Protocol Sodium Chloride 1,000 mls @ 50 mls/hr 03/14/19 13:35 03/14/19 13:38 Normal Saline 0.9% IV Not Given .Q20H LENA Insulin Human Lispro 0 units 03/12/19 12:31 03/14/19 06:18 Humalog SC 2 unit .MODERATE SLIDING SC PRN Administration Moderate Correctional Scale Lamotrigine 200 mg 03/10/19 21:00 03/13/19 20:36 Lamictal PO 200 mg HS LENA Administration Nortriptyline HCl 50 mg 03/11/19 21:00 03/13/19 20:36 Pamelor PO 50 mg HS LENA Administration Pantoprazole Sodium 40 mg 03/13/19 21:00 03/13/19 20:36 Protonix IVP 40 mg 2100 LENA Administration Senna/Docusate Sodium 2 tab 03/10/19 18:58 03/13/19 12:05 Senokot S PO 2 tab BIDPRN PRN Administration Constipation - Exam General Appearance: ill appearing Eye: PERRL, anicteric sclera ENT: no oropharyngeal lesions, moist mucosa Neck: supple, no JVD Heart: RRR, no murmur Respiratory: no wheezes, no rales Gastrointestinal: soft, non-tender, non-distended, normal bowel sounds Extremities: no cyanosis, 1+ LE edema Neurological: cranial nerve grossly intact, no focal deficits Hosp A/P (1) DKA, type 2 Code(s): E11.10 - TYPE 2 DIABETES MELLITUS WITH KETOACIDOSIS WITHOUT COMA Status: Resolved Qualifiers: Diabetes mellitus fdc insulin use: without fdc use Diabetes mellitus complication detail: without coma Qualified Code(s): E11.10 - Type 2 diabetes mellitus with ketoacidosis without coma (2) POLO (acute kidney injury) Code(s): N17.9 - ACUTE KIDNEY FAILURE, UNSPECIFIED Status: Acute (3) Sepsis Code(s): A41.9 - SEPSIS, UNSPECIFIED ORGANISM Status: Acute Qualifiers: Sepsis type: sepsis due to unspecified organism Sepsis acute organ dysfunction status: with acute organ dysfunction Severe sepsis acute organ dysfunction type: acute renal failure Severe sepsis shock status: without septic shock (4) s/p cardiac arrest Status: Acute (5) Obesity (BMI 30-39.9) Code(s): E66.9 - OBESITY, UNSPECIFIED Status: Chronic (6) Schizoaffective disorder Code(s): F25.9 - SCHIZOAFFECTIVE DISORDER, UNSPECIFIED Status: Chronic Qualifiers: Schizoaffective disorder type: unspecified Qualified Code(s): F25.9 - Schizoaffective disorder, unspecified (7) Acute respiratory failure with hypoxia Code(s): J96.01 - ACUTE RESPIRATORY FAILURE WITH HYPOXIA Status: Acute - Plan Developed VF/VT/asystole and arrest with CPR for 15 minutes on 03/10/2019. Intubated with arrest. DKA is mostly resolved, suggest stop protocol, suggest start 1/2NS at 150mlshr , lantus 10 u bid with humalog coverage Continue zosyn, lamictal, nortriptyline, clozaril echo shows normal ef and wall motion await cultures weaning per pulm adv renal function is holding up with no further improvement despite +ve fluid balance. gave updates to mom
[2019-03-14] MEDS ORDERED: Haloperidol Lactate 5 MG/ML VIAL IM PRN (17:04)
[2019-03-14] MEDS: Piperacillin/Tazobactam 3.375 GM in Sodium Chloride 0.9% 100 ML IVPB SCH ×2 (17:06→23:00)
[2019-03-14] MEDS ORDERED: Haloperidol Lactate 5 MG/ML VIAL IM SCH (17:15)
[2019-03-14 19:24] LABS: Actual Bicarbonate (HCO3a) 14.6 mEq/L (22-28); Base Excess (BEa) -10.4 mEq/L (-2.0 to +3.0); CO2 Tension 29.5 mmHg (35.0-45.0); Calcium, Ionized 1.16 mmol/L (1.12-1.30); Carboxyhemoglobin (COHb) 0.3 gm% (0.0-3.0); Hemoglobin (Hb) 10.9 g/dL (14.0-18.0); O2 Tension (PaO2) 96.8 mmHg (80.0-100.0); pH, Arterial 7.31 (7.35-7.45)
[2019-03-14 19:26] LABS: ALV-art Gradient 94.485 (0-20)
[2019-03-14] MEDS ORDERED: Furosemide 40 MG/4 ML VIAL ONE (20:21)
[2019-03-14] MEDS: Pantoprazole 40 MG VIAL IVP SCH (21:02)
[2019-03-14] MEDS: lamoTRIgine 100 MG TAB PO SCH ×2 (21:02→21:04)
[2019-03-14] MEDS: ALPRAZolam 0.5 MG TAB PO SCH (21:02)
[2019-03-14] MEDS: Nortriptyline HCl 25 MG CAP PO SCH ×2 (21:04)
[2019-03-14] MEDS: CLOZAPINE 100 MG PO SCH (21:04)
--- NOTE | 2019-03-14 21:58 | PRG ---
DATE OF SERVICE: 03/14/2019 Mr. Lopez was felt to be a candidate for extubation today. He passed spontaneous breathing trial. He passed a leak test. He subsequently has been extubated. His mother felt he had delusions once he was extubated, consistent with his behavior when he is not taking his antipsychotic drugs. She retrieved these from the car and he was started on his antipsychotics. He is being given his home clozapine since we do not have that on formulary. He was given a dose of Haldol after he was extubated. This evening, he was placed on BiPAP. He still has a mildly elevated beta hydroxybutyrate level, but the majority of his metabolic acidosis on lab I believe is hyperchloremic. His renal function is still not back to, will be a normal baseline for a 28-year-old. We will continue to follow. He is on a low-dose Demadex drip. His fentanyl, propofol, and paralytics obviously have been discontinued. We will continue to follow him closely. Critical care time 30 minutes. I met with mom and answered all of her questions. Job ID: [id number]
[2019-03-15] MEDS: Piperacillin/Tazobactam 3.375 GM in Sodium Chloride 0.9% 100 ML IVPB SCH ×4 (05:01→22:49)
[2019-03-15 05:39] LABS: Anion Gap 19 mmol/L (10-20); BUN (Urea Nitrogen) 26 mg/dL (8.9-20.6); Band 18 % (5-11); Calc. Creatinine Clearance 70 mL/min (70-130); Calcium 8.5 mg/dL (7.8-10.44); Carbon Dioxide 16 mmol/L (22-29); Chloride 114 mmol/L (98-107); Estimated GFR-MDRD 35; Glucose 130 mg/dL (70-105); Hemoglobin 11.6 g/dL (14.0-18.0); Hypochromia SLIGHT = 6-15 cells (100X) (0-5/hpf); Lymphocytes 10 % (21-51); MDiff Complete? YES; Mean Corpuscular HGB CONC 34.7 g/dL (32.0-36.0); Mean Corpuscular Hemoglobin 28.3 pg (27.0-31.0); Mean Corpuscular Volume 81.5 fL (78.0-98.0); Mean Platelet Volume 9.2 fL (7.4-10.4); Monocytes 20 % (0-10); Neutrophil 46 % (42-75); Platelet Count 207 thou/uL (130-400); Platelet Morphology Comment Appears Adequate; Reactive Lymphocytes 6 % (0-10); Red Blood Cell (RBC) Count 4.12 mill/uL (4.70-6.10); Sodium 146 mmol/L (136-145); White Blood Cell (WBC) Count 8.2 thou/uL (4.8-10.8)
[2019-03-15 05:42] LABS: Potassium 2.7 mmol/L (3.5-5.1)
[2019-03-15] MEDS ORDERED: Potassium Chloride 40 MEQ in Premix Bag 1 BAG IVPB SCH (07:15)
--- NOTE | 2019-03-15 08:25 | RAD ---
XR Chest 1 View Portable History: Edema Comparison: Radiograph prior day Findings: Patient has been Gated in the enteric tube has been removed. Left IJ central venous catheter is similar. Multifocal ai rspace consolidation is worsening. Moderate layering effusions. The oxygen tubing projecting over the right lung apex is the appearance of the pneumothorax although this is felt to be artifactual. Impression: 1. Worsening aeration of the lungs. This may reflect multifocal pneumonia versus aspiration. 2. The oxygen tubing projecting over the right lung apex. The appearance pneumothorax although this i s felt to be likely artifactual. Follow-up 2 views recommended.
[2019-03-15] MEDS ORDERED: Heparin 5,000 UNITS/ML VIAL SC SCH (09:00)
[2019-03-15] MEDS ORDERED: Enoxaparin Sodium 40 MG/0.4 ML SYRINGE SC SCH (09:00)
[2019-03-15] MEDS: Insulin Glargine 10 UNITS in Pre-Filled Syringe 1 EACH SC SCH ×2 (09:04→21:09)
[2019-03-15] MEDS ORDERED: Furosemide 40 MG/4 ML VIAL SLOW IVP SCH (09:30)
--- NOTE | 2019-03-15 09:43 | PRG ---
DATE OF SERVICE: 03/15/2019 SUBJECTIVE: Mr. Lopez is a 28-year-old white male, who was admitted for DKA and was seen by the Renal Service for his acute kidney injury. Initially, we felt that this is all hemodynamically mediated renal dysfunction, but his creatinine is hanging around 2.2 to 2.1 for the last several days in spite of aggressive volume repletion. He is now third-spacing. In addition, he was said to have received diuretics last night and he diuresed well. His output is about 3.8 L in the last 24 hours. He is now extubated. My advice is to give him another dose of Lasix 40 mg IV. My feeling is that this patient may have developed some degree of acute tubular necrosis. OBJECTIVE: VITAL SIGNS: Blood pressure 152/85, heart rate is at 48, respiratory rate 27, O2 saturation 98%. GENERAL: The patient is awake, not in overt distress. SKIN: Adequate turgor. HEENT: He has a pinkish conjunctivae, anicteric sclerae. NECK: No neck mass. No carotid bruits. No JVD. CHEST: No deformities. LUNGS: Harsh breath sounds. HEART: Bradycardic. No murmur. No gallops. No rubs. ABDOMEN: Globular, soft, nontender. No masses. EXTREMITIES: No edema. No deformities. MEDICATIONS: Medications of March 15, 2019, were reviewed. LABORATORY DATA: Laboratories of March 15, 2019, white count 8.2, hemoglobin 11.6. Sodium 146, potassium 2.7, chloride 114, carbon dioxide 19, BUN 26, creatinine 2.25, glucose 130, calcium 8.5. ASSESSMENT AND PLAN: 1. Acute kidney injury-initially we felt that this was all hemodynamically mediated renal dysfunction. With a creatinine hanging around in the low 2s, consider the possibility of a superimposed mild acute tubular necrosis. He has also has been third-spacing. For that reason, he has received albumin infusion. He was said to have received a diuretic last night. Our plan is to give him another dose of Lasix at 40 mg IV x1 dose. There is no indication for any dialytic intervention with this patient. 2. Diabetic ketoacidosis, clinically much improved. 3. Please note, IV fluids now currently decreased to 50 mL/hour. 4. Mild hypernatremia. Increased free water p.o. intake with this patient. 5. Agree with current management. Job ID: [id number]
--- NOTE | 2019-03-15 10:43 | PRG ---
DATE OF SERVICE: 03/15/2019 SUBJECTIVE: Hao Lopez wore BiPAP last night. He actually was able to fall asleep with that and said he feels good this morning. He just is complaining of being thirsty. OBJECTIVE: VITAL SIGNS: Blood pressure 147/85, heart rate 80, respiratory rates in the 20s. LUNGS: Clear anteriorly. HEART: Regular rhythm. ABDOMEN: Soft. EXTREMITIES: Without asymmetry. LABORATORY DATA: White count 8.2, hemoglobin 11.6, and platelets 207,000. Sodium 146, potassium 2.7, chloride 114, bicarb 16, BUN 26, and creatinine 2.25. Intake and output, negative 1122. IMPRESSION: 1. Status post large volume resuscitation after he presented with diabetic ketoacidosis that was new and subsequently, coded on the intermediate care unit. Neurologically, he appears to be intact. 2. 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 This never was given a name according to the mother. 3. Pituitary dwarfism. 4. Schizophrenia that developed 2 months into growth hormone therapy, growth hormone therapy was stopped. 5. Paranoid delusions. His delusions are consistent with his behavior when he misses his Clozaril. His home Clozaril is being to him per the home dose. His mother brought the medicine up here since it is not on formulary. He will remain in the critical care unit. Nephrology will continue to follow him. His renal function appears to be stable, but has not improved dramatically. It is unclear what his baseline is since we do not have any recent lab on him. This may be his baseline. Dr. Johnson's input is appreciated. We will continue to follow. He will remain in the critical care unit. Job ID: [id number]
[2019-03-15] MEDS: Sodium Chloride 0.9% 1,000 ML IV SCH (10:49)
--- NOTE | 2019-03-15 15:35 | PDOC.HOSPP ---
- Subjective Encounter Date: 03/15/19 Encounter Time: 09:00 Subjective: awake, tries to talk with sob? mother at bedside says he wants a medium fruit cup serving ate his breakast well this am - Objective Vital Signs & Weight: Vital Signs (12 hours) Temp Pulse Pulse Ox 03/15/19 08:00 96 03/15/19 04:01 48 L 99 03/15/19 04:00 98.4 F Weight Admit Weight 231 lb Weight 222 lb 0.088 oz Most Recent Monitor Data Heart Rate from ECG 78 NIBP 150/96 NIBP BP-Mean 114 Respiration from ECG 32 SpO2 95 I&O: 03/14/19 03/15/19 03/16/19 06:59 06:59 06:59 Intake Total 4690.4 2757.2 1440 Output Total 3140 3880 3360 Balance 1550.4 -1122.8 -1920 Result Diagrams: 03/15/19 04:49 03/15/19 04:49 Additional Labs: Accuchecks 03/15/19 03/15/19 03/14/19 11:12 00:15 19:34 POC Glucose 172 H 114 H 134 H 03/14/19 18:03 POC Glucose 168 H Hospitalist ROS - Medication Medications: Active Medications Generic Name Dose Route Start Last Admin Trade Name Kurt PRN Reason Stop Dose Admin Acetaminophen 650 mg 03/10/19 18:58 03/14/19 13:38 Tylenol PO 650 mg Q4H PRN Administration Headache/Fever/Mild Pain (1-3) Alprazolam 0.5 mg 03/14/19 21:00 03/14/19 21:02 Xanax PO 0.5 mg HS LENA Administration Insulin Glargine 10 units/ 0.1 mls @ 0 mls/hr 03/12/19 21:00 03/15/19 09:04 Miscellaneous Medication SC 0.1 mls BID LENA Administration Dexmedetomidine HCl 400 mcg/ 100 mls @ 0 mls/hr 03/13/19 17:15 03/15/19 09:06 Sodium Chloride IVPB 100 mls INF LENA Administration Protocol Per Protocol Piperacillin Sod/Tazobactam 100 mls @ 200 mls/hr 03/14/19 17:00 03/15/19 12: 39 Sod 3.375 gm/ Sodium Chloride IVPB 100 mls 0500,1100,1700,2300 LENA Administration Sodium Chloride 1,000 mls @ 50 mls/hr 03/14/19 13:35 03/15/19 10:49 Normal Saline 0.9% IV Not Given .Q20H LENA Insulin Human Lispro 0 units 03/12/19 12:31 03/14/19 18:32 Humalog SC 2 unit .MODERATE SLIDING SC PRN Administration Moderate Correctional Scale Lamotrigine 200 mg 03/14/19 21:00 03/14/19 21:04 Lamictal PO Not Given HS LENA Nortriptyline HCl 50 mg 03/14/19 21:00 03/14/19 21:04 Pamelor PO Not Given HS LENA Clozapine 100mg Tabs 2 each 03/14/19 21:00 03/14/19 21:04 Patient's Home PO 2 each Medication HS LENA Administration Potassium Chloride 40 meq 03/15/19 09:45 03/15/19 10:00 Klor-Con PO 03/15/19 21:46 40 meq Q6H LENA Administration Senna/Docusate Sodium 2 tab 03/10/19 18:58 03/13/19 12:05 Senokot S PO 2 tab BIDPRN PRN Administration Constipation - Exam General Appearance: awake alert, ill appearing Eye: PERRL, anicteric sclera ENT: no oropharyngeal lesions, moist mucosa Neck: supple, no JVD Heart: RRR, no murmur Respiratory: no wheezes, no rales, rhonchi Gastrointestinal: soft, non-tender, non-distended, normal bowel sounds Extremities: no cyanosis, 1+ LE edema Neurological: cranial nerve grossly intact, no focal deficits Hosp A/P (1) DKA, type 2 Code(s): E11.10 - TYPE 2 DIABETES MELLITUS WITH KETOACIDOSIS WITHOUT COMA Status: Resolved Qualifiers: Diabetes mellitus generator repairer insulin use: without generator repairer use Diabetes mellitus complication detail: without coma Qualified Code(s): E11.10 - Type 2 diabetes mellitus with ketoacidosis without coma (2) POLO (acute kidney injury) Code(s): N17.9 - ACUTE KIDNEY FAILURE, UNSPECIFIED Status: Acute (3) Sepsis Code(s): A41.9 - SEPSIS, UNSPECIFIED ORGANISM Status: Acute Qualifiers: Sepsis type: sepsis due to unspecified organism Sepsis acute organ dysfunction status: with acute organ dysfunction Severe sepsis acute organ dysfunction type: acute renal failure Severe sepsis shock status: without septic shock (4) s/p cardiac arrest Status: Acute (5) Obesity (BMI 30-39.9) Code(s): E66.9 - OBESITY, UNSPECIFIED Status: Chronic (6) Schizoaffective disorder Code(s): F25.9 - SCHIZOAFFECTIVE DISORDER, UNSPECIFIED Status: Chronic Qualifiers: Schizoaffective disorder type: unspecified Qualified Code(s): F25.9 - Schizoaffective disorder, unspecified (7) Acute respiratory failure with hypoxia Code(s): J96.01 - ACUTE RESPIRATORY FAILURE WITH HYPOXIA Status: Acute - Plan Developed VF/VT/asystole and arrest with CPR for 15 minutes on 03/10/2019. Intubated with arrest. Extubated on 03/14/2019. DKA is resolved, is on lantus 10 u bid with humalog coverage Continue zosyn, lamictal, nortriptyline, clozaril echo shows normal ef and wall motion renal function is holding up with no further improvement despite +ve fluid balance. gave updates to mom is deconditioned, will need rehab on discharge PT/OT eval is on precedex low dose drip to prevent anxiety flare up with underlying psychiatric issues.
[2019-03-15] MEDS: HumaLOG 300 UNITS/3 ML VIAL SC PRN (19:01)
[2019-03-15] MEDS ORDERED: Pantoprazole 40 MG GRANULES PACKET PO SCH (21:00)
[2019-03-15] MEDS: ALPRAZolam 0.5 MG TAB PO SCH (21:05)
[2019-03-15] MEDS: lamoTRIgine 100 MG TAB PO SCH (21:05)
[2019-03-15] MEDS: Nortriptyline HCl 25 MG CAP PO SCH (21:06)
[2019-03-15] MEDS: CLOZAPINE 100 MG PO SCH (21:07)
[2019-03-16] MEDS: HumaLOG 300 UNITS/3 ML VIAL SC PRN ×5 (00:38→21:19)
[2019-03-16] MEDS: Piperacillin/Tazobactam 3.375 GM in Sodium Chloride 0.9% 100 ML IVPB SCH ×4 (05:48→23:32)
[2019-03-16] MEDS: Sodium Chloride 0.9% 1,000 ML IV SCH (06:32)
[2019-03-16 07:02] LABS: Hemoglobin 11.1 g/dL (14.0-18.0); Mean Corpuscular HGB CONC 35.2 g/dL (32.0-36.0); Mean Corpuscular Hemoglobin 28.9 pg (27.0-31.0); Mean Platelet Volume 7.9 fL (7.4-10.4); Platelet Count 297 thou/uL (130-400); RBC Distribution Width 12.9 % (11.5-14.5); Red Blood Cell (RBC) Count 3.84 mill/uL (4.70-6.10); White Blood Cell (WBC) Count 5.8 thou/uL (4.8-10.8)
[2019-03-16 07:03] LABS: Band 4 % (5-11); Eosinophils 3 % (0-10); Lymphocytes 28 % (21-51); MDiff Complete? YES; Metamyelocyte 3 % (0-0); Monocytes 23 % (0-10); Neutrophil 39 % (42-75); Platelet Morphology Comment Appears Adequate
[2019-03-16 07:38] LABS: Anion Gap 19 mmol/L (10-20); BUN (Urea Nitrogen) 25 mg/dL (8.9-20.6); Calc. Creatinine Clearance 77 mL/min (70-130); Calcium 8.5 mg/dL (7.8-10.44); Carbon Dioxide 13 mmol/L (22-29); Chloride 121 mmol/L (98-107); Estimated GFR-MDRD 40; Glucose 174 mg/dL (70-105); Potassium 4.4 mmol/L (3.5-5.1); Sodium 149 mmol/L (136-145)
[2019-03-16] MEDS: Insulin Glargine 10 UNITS in Pre-Filled Syringe 1 EACH SC SCH ×2 (09:45→20:30)
[2019-03-16] MEDS: Enoxaparin Sodium 30 MG/0.3 ML SYRINGE SC SCH (09:45)
--- NOTE | 2019-03-16 11:00 | PRG ---
DATE OF SERVICE: 03/16/2019 SUBJECTIVE: He is awake, alert, voices no complaints. He is tachypneic at rest. OBJECTIVE: VITAL SIGNS: On exam, temperature is 98.2, heart rate in the 40s to 50s, respiratory rate in the high 20s, blood pressure 149/74, and O2 saturation 100%. HEENT: Unremarkable. NECK: No adenopathy or JVD. CHEST: Fairly clear anteriorly. CARDIAC: S1 and S2 regular without audible murmur. ABDOMEN: Soft, obese, and nontender. EXTREMITIES: No edema. LABORATORY DATA: White blood cell count 5.8, hematocrit 31.5, and platelet count 297. Sodium 149, potassium 4.4, chloride 121, CO2 of 13, anion gap 15, BUN 25, creatinine 2.0, and glucose 174. ASSESSMENT: 1. Status post diabetic ketoacidosis. 2. Non-anion gap metabolic acidosis. 3. History of pituitary dwarfism. 4. Schizophrenia. PLAN: 1. He is being kept in the ICU on a Precedex drip for agitation. I have instructed the nurse to slowly wean him from this. 2. Diabetes is currently being managed by the Hospitalist Service. 3. Renal issues, being managed by Dr. Johnson. 4. We will continue to follow. Job ID: [id number]
--- NOTE | 2019-03-16 11:42 | PRG ---
DATE OF SERVICE: 03/16/2019 SERVICE: Renal Medicine. SUBJECTIVE: Mr. Lopez is a 28-year-old white male, who was admitted for DKA and seen by the Renal Service for his acute kidney injury. Initially, this was being treated as a hemodynamically-mediated renal dysfunction and he received several liters of fluid. However, creatinine started hanging in the low 2s. My suspicion there may be a superimposed mild acute tubular necrosis. He is diuresing well. He has also been third-spacing, for that reason, He has received p.r.n. diuretics. Of interest, his last urine output in the last 24 hours was noted at 4.8 L. He was also noted to be mildly hypernatremic. He is feeling better. He is extubated. No new complaints. He is tolerating his p.o. OBJECTIVE: VITAL SIGNS: Blood pressure 142/88, heart rate 50, respiratory rate 32, and pulse ox 100%. GENERAL: Awake, alert, obese, comfortable, not in distress. SKIN: Adequate turgor. HEENT: He has pinkish conjunctivae. Anicteric sclerae. NECK: No neck mass. No carotid bruits. No JVD. CHEST: No deformities. LUNGS: Clear breath sounds. No wheezing. No crackles. HEART: Normal sinus rhythm. No murmurs. No gallops. No rubs. ABDOMEN: Globular, soft, and nontender. No masses. EXTREMITIES: Trace edema. No deformities. MEDICATIONS: Medications of March 16, 2019, were reviewed. LABORATORY DATA: Laboratories of March 16, 2019; white count 5.8, hemoglobin 11.1. Sodium 149, potassium 4.4, chloride 121, carbon dioxide 13, BUN 25, creatinine 2.01, calcium 8.5, and glucose 174. ASSESSMENT AND PLAN: 1. Status post diabetic ketoacidosis, much improved. Continuing current insulin regimen. 2. Acute kidney injury - consider superimposed mild acute tubular necrosis, stabilizing renal function. Continue supportive care. No indication for any dialytic intervention. 3. Mild hypernatremia - encourage the patient to increase free water intake. Discussed this with the nursing staff. 4. Metabolic acidosis. Sodium bicarbonate 650 mg p.o. t.i.d. and there is no indication for any dialytic intervention with this patient. Job ID: [id number]
[2019-03-16] MEDS: Sodium Bicarbonate Tab 325 MG TAB PO SCH ×2 (16:35→20:29)
--- NOTE | 2019-03-16 19:29 | PDOC.HOSPP ---
- Subjective Subjective: Pt is stable. He is on BIPAP due to occasional hypoxia. He has no complaints at this time. His parents are at bedside. - Objective Vital Signs & Weight: Vital Signs (12 hours) Temp Pulse Ox 03/16/19 19:00 98.0 F 03/16/19 16:00 98.4 F 03/16/19 12:00 98.3 F 03/16/19 08:00 98.5 F 100 Weight Admit Weight 231 lb Weight 219 lb 2.232 oz Most Recent Monitor Data Heart Rate from ECG 54 NIBP 142/80 NIBP BP-Mean 100 Respiration from ECG 34 SpO2 98 I&O: 03/15/19 03/16/19 03/17/19 06:59 06:59 06:59 Intake Total 2757.2 2652 2399.2 Output Total 3880 4855 1330 Balance -1122.8 -2203 1069.2 Result Diagrams: 03/16/19 06:42 03/16/19 06:38 Additional Labs: Accuchecks 03/16/19 03/16/19 03/16/19 16:45 13:00 06:34 POC Glucose 217 H 195 H 163 H 03/16/19 00:26 POC Glucose 204 H Hospitalist ROS - Review of Systems Constitutional: denies: fever, chills, sweats, weakness, malaise, other Eyes: denies: pain, vision change, conjunctivae inflammation, eyelid inflammation, redness, other ENT: denies: ear pain, ear discharge, nose pain, nose discharge, nose congestion , mouth pain, mouth swelling, throat pain, throat swelling, other Respiratory: reports: shortness of breath. denies: cough, dry, hemoptysis, SOB with excertion, pleuritic pain, sputum, wheezing, other Cardiovascular: denies: chest pain, palpitations, orthopnea, paroxysmal noc. dyspnea, edema, light headedness, other Gastrointestinal: denies: nausea, vomiting, abdominal pain, diarrhea, constipation, melena, hematochezia, other Genitourinary: denies: dysuria, frequency, incontinence, hematuria, retention, other Musculoskeletal: denies: neck pain, shoulder pain, arm pain, back pain, hand pain, leg pain, foot pain, other Skin: denies: rash, lesions, rosalio, bruising, other Neurological: denies: weakness, numbness, incoordination, change in speech, confusion, seizures, other - Medication Medications: Active Medications Generic Name Dose Route Start Last Admin Trade Name Kurt PRN Reason Stop Dose Admin Acetaminophen 650 mg 03/10/19 18:58 03/14/19 13:38 Tylenol PO 650 mg Q4H PRN Administration Headache/Fever/Mild Pain (1-3) Alprazolam 0.5 mg 03/14/19 21:00 03/15/19 21:05 Xanax PO 0.5 mg HS LENA Administration Enoxaparin Sodium 30 mg 03/16/19 09:00 03/16/19 09:45 Lovenox SC 30 mg 0900 LENA Administration Insulin Glargine 10 units/ 0.1 mls @ 0 mls/hr 03/12/19 21:00 03/16/19 09:45 Miscellaneous Medication SC 0.1 mls BID LENA Administration Dexmedetomidine HCl 400 mcg/ 100 mls @ 0 mls/hr 03/13/19 17:15 03/16/19 06:42 Sodium Chloride IVPB 100 mls INF LENA Administration Protocol Per Protocol Piperacillin Sod/Tazobactam 100 mls @ 200 mls/hr 03/14/19 17:00 03/16/19 16: 35 Sod 3.375 gm/ Sodium Chloride IVPB 100 mls 0500,1100,1700,2300 LENA Administration Insulin Human Lispro 0 units 03/12/19 12:31 03/16/19 16:43 Humalog SC 4 unit .MODERATE SLIDING SC PRN Administration Moderate Correctional Scale Lamotrigine 200 mg 03/14/19 21:00 03/15/19 21:05 Lamictal PO 200 mg HS LENA Administration Nortriptyline HCl 50 mg 03/14/19 21:00 03/15/19 21:06 Pamelor PO 50 mg HS LENA Administration Clozapine 100mg Tabs 2 each 03/14/19 21:00 03/15/19 21:07 Patient's Home PO 2 each Medication HS LENA Administration Senna/Docusate Sodium 2 tab 03/10/19 18:58 03/13/19 12:05 Senokot S PO 2 tab BIDPRN PRN Administration Constipation Sodium Bicarbonate 650 mg 03/16/19 15:00 03/16/19 16:35 Bicarbonate, Sodium PO 650 mg TID LENA Administration - Exam General Appearance: NAD, awake alert Eye: PERRL, anicteric sclera ENT: normocephalic atraumatic, moist mucosa Neck: supple, symmetric, no JVD, no thyromegaly, no lymphadenopathy Heart: RRR, no murmur, no gallops, no rubs, normal peripheral pulses Respiratory: CTAB, no wheezes, no rales, no ronchi Gastrointestinal: soft, non-tender, non-distended, normal bowel sounds Extremities: no cyanosis, no clubbing, no edema Skin: no lesions, no rashes Neurological: cranial nerve grossly intact, no focal deficits Musculoskeletal: normal strength, no muscle wasting Psychiatric: normal affect (Bipap over face), normal behavior Hosp A/P (1) DKA, type 2 Code(s): E11.10 - TYPE 2 DIABETES MELLITUS WITH KETOACIDOSIS WITHOUT COMA Status: Resolved Qualifiers: Diabetes mellitus buttermaker continuous churn insulin use: without intermediate use Diabetes mellitus complication detail: without coma Qualified Code(s): E11.10 - Type 2 diabetes mellitus with ketoacidosis without coma Plan: Pt is off Insulin gtt. Now on long acting insulin, Will cont current regimen. Cover with SSI. Pt has been advised on DM education and to f/u with Electric Blasting Cap Assembler after d/c. Will likely due well with an insulin pump for intermediate. (2) POLO (acute kidney injury) Code(s): N17.9 - ACUTE KIDNEY FAILURE, UNSPECIFIED Status: Acute Plan: Unsure of baseline will hydrate gently. Monitor Cr. (3) Acute respiratory failure with hypoxia Code(s): J96.01 - ACUTE RESPIRATORY FAILURE WITH HYPOXIA Status: Acute Plan: Unclear etiology. Will cont to wean off BIPAP. Will get CT chest for further evaluation. (4) s/p cardiac arrest Status: Acute Plan: Stable. now. Cont to monitor on Telemetry. (5) Schizoaffective disorder Code(s): F25.9 - SCHIZOAFFECTIVE DISORDER, UNSPECIFIED Status: Chronic Qualifiers: Schizoaffective disorder type: unspecified Qualified Code(s): F25.9 - Schizoaffective disorder, unspecified Plan: Cont supportive care. - Plan plan discussed w/ family, respiratory therapy PPx: SCDs. CODE: FULL. Dispo: Cont current mgt.
[2019-03-16] MEDS: ALPRAZolam 0.5 MG TAB PO SCH (20:29)
[2019-03-16] MEDS: lamoTRIgine 100 MG TAB PO SCH (20:29)
[2019-03-16] MEDS: Nortriptyline HCl 25 MG CAP PO SCH (20:30)
[2019-03-16] MEDS: CLOZAPINE 100 MG PO SCH (20:30)
--- NOTE | 2019-03-16 23:09 | CT ---
CT CHEST WITHOUT CONTRAST CLINICAL INDICATION: Shortness of breath. Evaluate for pneumonia versus pleural effusion. COMPARISON: CT abdomen on 03/11/2019. FINDINGS: Aorta: Lack of intravenous contrast limits evaluation of the thoracic aorta. Thoracic aorta is normal in caliber. Lungs: Moderately large right and moderate size left pleural fusions are seen with associated consoli dation likely due to passive atelectasis. However, there are patchy and confluent areas of alveolar opacity within the left upper lobe and left lower lobe which are most suggestive of pneumonia. Mediastinum: There is mild increase in number and mildly enlarged mediastinal lymph nodes likely reac tive in origin. Thyroid gland: Grossly normal nonenhanced CT appearance. Osseous structures: No acute process. Chest wall: A left internal jugular vein central venous catheter is noted in place with tip in proxim al SVC. Upper abdomen: Grossly normal nonenhanced CT appearance. Nasogastric tube noted on prior CT abdomen h as been removed. IMPRESSION: 1. Interval increase in bilateral pleural effusions compared to study on 03/11/2019 with moderately la rge right and moderate size left pleural effusions with associated atelectasis. 2. Patchy and confluent areas of consolidation in the left upper and left lower lobe likely related t o multifocal pneumonia. Follow-up to resolution is recommended. 3. Mediastinal lymphadenopathy likely reactive in origin.
[2019-03-17] MEDS: Piperacillin/Tazobactam 3.375 GM in Sodium Chloride 0.9% 100 ML IVPB SCH ×4 (05:04→22:03)
[2019-03-17 06:02] LABS: Anion Gap 13 mmol/L (10-20); BUN (Urea Nitrogen) 21 mg/dL (8.9-20.6); Calc. Creatinine Clearance 90 mL/min (70-130); Calcium 8.2 mg/dL (7.8-10.44); Carbon Dioxide 21 mmol/L (22-29); Chloride 111 mmol/L (98-107); Estimated GFR-MDRD 51; Glucose 165 mg/dL (70-105); Sodium 142 mmol/L (136-145)
[2019-03-17 06:10] LABS: Band 12 % (5-11); Eosinophils 1 % (0-10); Hemoglobin 11.3 g/dL (14.0-18.0); Lymphocytes 20 % (21-51); MDiff Complete? YES; Mean Corpuscular HGB CONC 33.4 g/dL (32.0-36.0); Mean Corpuscular Hemoglobin 27.4 pg (27.0-31.0); Mean Corpuscular Volume 82.1 fL (78.0-98.0); Mean Platelet Volume 7.7 fL (7.4-10.4); Metamyelocyte 1 % (0-0); Monocytes 9 % (0-10); Neutrophil 57 % (42-75); Platelet Count 396 thou/uL (130-400); Platelet Morphology Comment Appears Adequate; RBC Distribution Width 12.5 % (11.5-14.5); RBC Morphology Normal; Red Blood Cell (RBC) Count 4.11 mill/uL (4.70-6.10); White Blood Cell (WBC) Count 5.9 thou/uL (4.8-10.8)
[2019-03-17] MEDS: Potassium Chloride 20 MEQ TAB PO SCH ×3 (06:37→20:17)
[2019-03-17] MEDS: HumaLOG 300 UNITS/3 ML VIAL SC PRN ×4 (06:38→20:26)
[2019-03-17] MEDS ORDERED: Furosemide 40 MG/4 ML VIAL SLOW IVP SCH (09:15)
--- NOTE | 2019-03-17 09:29 | PRG ---
DATE OF SERVICE: 03/17/2019 SUBJECTIVE: The patient is doing somewhat better today. He is off the CPAP this morning and looks to be doing well. OBJECTIVE: VITAL SIGNS: Temperature 98.4, pulse 76, blood pressure 158/96, respiratory rate of 20s to 30s. HEENT: Unremarkable. NECK: No JVD. LUNGS: Diminished breath sounds at the bases. CARDIAC: S1 and S2. Regular. ABDOMEN: Soft, obese, nontender, nondistended. EXTREMITIES: No clubbing, cyanosis, or edema. LABORATORY DATA: Sodium 142, potassium 3, chloride 111, CO2 of 21, BUN 21, creatinine 1.6, and glucose 165. White blood cell count 5.9, hematocrit 33.7, and platelet count 396. ASSESSMENT: 1. The patient has bilateral effusions on CT scan. 2. Status post diabetic ketoacidosis. 3. Non-anion gap metabolic acidosis. 4. Mild hypokalemia. 5. History of pituitary dwarfism. PLAN: The Precedex drip has been stopped. I will go ahead and give him a dose of diuretics. We will take out his Reed to get a central line, put a midline in for IV access. Hopefully, he can go to the floor tomorrow if okay with Dr. Nicholson. Job ID: [id number]
[2019-03-17] MEDS: Enoxaparin Sodium 30 MG/0.3 ML SYRINGE SC SCH (10:26)
[2019-03-17] MEDS: Sodium Bicarbonate Tab 325 MG TAB PO SCH ×3 (10:26→20:17)
[2019-03-17] MEDS: Insulin Glargine 10 UNITS in Pre-Filled Syringe 1 EACH SC SCH ×2 (10:45→20:19)
[2019-03-17] MEDS ORDERED: Potassium Chloride 20 MEQ TAB PO SCH (11:00)
[2019-03-17] MEDS ORDERED: Magnesium 2 GM/50 ML 2 GM in Premix Bag 1 BAG IVPB SCH (11:15)
--- NOTE | 2019-03-17 11:44 | PRG ---
DATE OF SERVICE: 03/17/2019 SERVICE: Renal Medicine. SUBJECTIVE: Mr. Lopez is a 28-year-old white male, who was seen for his acute kidney injury. This was initially thought to be all hemodynamically-mediated renal dysfunction. Creatinine hanged at the low 2s for several days and he most likely has mild acute tubular necrosis. He was also diuresed due to third-spacing. CT scan of the chest showed moderate bilateral pleural effusion. Lasix was given this morning. No other complaints. He is feeling better. OBJECTIVE: VITAL SIGNS: Blood pressure 158/96, heart rate 76, and respiratory rate 36. GENERAL: Noted to be awake, alert, comfortable, sitting, not in distress. SKIN: Adequate turgor. HEENT: Pinkish conjunctivae. Anicteric sclerae. NECK: No neck mass. No carotid bruits. No JVD. CHEST: No deformities. LUNGS: Decreased breath sounds. HEART: Normal sinus rhythm. No murmur. No gallops. No rubs. ABDOMEN: Globular, soft, and nontender. No masses. EXTREMITIES: No edema. MEDICATIONS: Medications of March 17, 2019, were reviewed. LABORATORY DATA: Laboratories of March 12, 2019, urinalysis showed a protein of 30, no red cells, no white cells, no casts. On March 17, 2019; sodium 142, potassium 3, chloride 111, carbon dioxide 21, BUN 21, creatinine 1.62, and calcium 8.2. CT scan of the chest shows bilateral pleural effusion. ASSESSMENT AND PLAN: 1. Bilateral pleural effusion. Agree with current diuretic regimen. 2. Acute kidney injury - slowly improving renal function. Acute tubular necrosis may be slowly resolving. Continue supportive care. There is no indication for any dialytic intervention. Continue p.r.n. Lasix. 3. Diabetic ketoacidosis, resolved. 4. Hypernatremia, much improved with free water intake. 5. Metabolic acidosis, slowly improving with sodium bicarbonate tablets. Agree with current management. Job ID: [id number]
--- NOTE | 2019-03-17 15:52 | PDOC.HOSPP ---
- Subjective Subjective: Pt is more awake and alert now. He is off BIPAP and his brother is at bedside. - Objective Vital Signs & Weight: Vital Signs (12 hours) Temp Pulse Pulse BP BP Pulse Ox Pulse Ox 03/17/19 12:00 98.1 F 03/17/19 10:10 77 74 150/77 H 150/84 H 96 03/17/19 08:00 98.8 F 100 03/17/19 04:00 98.4 F Pulse Ox 03/17/19 12:00 03/17/19 10:10 96 03/17/19 08:00 03/17/19 04:00 Weight Admit Weight 231 lb Weight 206 lb 5.643 oz Most Recent Monitor Data Heart Rate from ECG 58 NIBP 147/76 NIBP BP-Mean 99 Respiration from ECG 32 SpO2 98 I&O: 03/16/19 03/17/19 03/18/19 06:59 06:59 06:59 Intake Total 2652 3210.2 1080 Output Total 4855 2625 2980 Balance -2203 585.2 -1900 Result Diagrams: 03/17/19 05:31 03/17/19 05:31 Additional Labs: Accuchecks 03/17/19 03/17/19 03/16/19 11:26 05:34 21:18 POC Glucose 209 H 168 H 240 H 03/16/19 16:45 POC Glucose 217 H Hospitalist ROS - Review of Systems Constitutional: denies: fever, chills, sweats, weakness, malaise, other Eyes: denies: pain, vision change, conjunctivae inflammation, eyelid inflammation, redness, other ENT: denies: ear pain, ear discharge, nose pain, nose discharge, nose congestion , mouth pain, mouth swelling, throat pain, throat swelling, other Respiratory: denies: cough, dry, shortness of breath, hemoptysis, SOB with excertion, pleuritic pain, sputum, wheezing, other Cardiovascular: denies: chest pain, palpitations, orthopnea, paroxysmal noc. dyspnea, edema, light headedness, other Gastrointestinal: denies: nausea, vomiting, abdominal pain, diarrhea, constipation, melena, hematochezia, other Genitourinary: denies: dysuria, frequency, incontinence, hematuria, retention, other Musculoskeletal: denies: neck pain, shoulder pain, arm pain, back pain, hand pain, leg pain, foot pain, other Skin: denies: rash, lesions, rosalio, bruising, other Neurological: denies: weakness, numbness, incoordination, change in speech, confusion, seizures, other - Medication Medications: Active Medications Generic Name Dose Route Start Last Admin Trade Name Freq PRN Reason Stop Dose Admin Acetaminophen 650 mg 03/10/19 18:58 03/14/19 13:38 Tylenol PO 650 mg Q4H PRN Administration Headache/Fever/Mild Pain (1-3) Alprazolam 0.5 mg 03/14/19 21:00 03/16/19 20:29 Xanax PO 0.5 mg HS LENA Administration Enoxaparin Sodium 30 mg 03/16/19 09:00 03/17/19 10:26 Lovenox SC 30 mg 0900 LENA Administration Insulin Glargine 10 units/ 0.1 mls @ 0 mls/hr 03/12/19 21:00 03/17/19 10:45 Miscellaneous Medication SC 0.1 mls BID LENA Administration Dexmedetomidine HCl 400 mcg/ 100 mls @ 0 mls/hr 03/13/19 17:15 03/16/19 20:07 Sodium Chloride IVPB 100 mls INF LENA Administration Protocol Per Protocol Piperacillin Sod/Tazobactam 100 mls @ 200 mls/hr 03/14/19 17:00 03/17/19 10: 27 Sod 3.375 gm/ Sodium Chloride IVPB 100 mls 0500,1100,1700,2300 LENA Administration Insulin Human Lispro 0 units 03/12/19 12:31 03/17/19 12:35 Humalog SC 4 unit .MODERATE SLIDING SC PRN Administration Moderate Correctional Scale Lamotrigine 200 mg 03/14/19 21:00 03/16/19 20:29 Lamictal PO 200 mg HS LENA Administration Nortriptyline HCl 50 mg 03/14/19 21:00 03/16/19 20:30 Pamelor PO 50 mg HS LENA Administration Pantoprazole Sodium 40 mg 03/16/19 21:00 03/16/19 20:29 Protonix PO 40 mg 2100 LENA Administration Clozapine 100mg Tabs 2 each 03/14/19 21:00 03/16/19 20:30 Patient's Home PO 2 each Medication HS LENA Administration Potassium Chloride 40 meq 03/17/19 07:00 03/17/19 06:37 K-Dur PO 03/17/19 19:01 40 meq Q6H LENA Administration Senna/Docusate Sodium 2 tab 03/10/19 18:58 03/13/19 12:05 Senokot S PO 2 tab BIDPRN PRN Administration Constipation Sodium Bicarbonate 650 mg 03/16/19 15:00 03/17/19 10:26 Bicarbonate, Sodium PO 650 mg TID LENA Administration - Exam General Appearance: NAD, awake alert Eye: PERRL, anicteric sclera ENT: normocephalic atraumatic, no oropharyngeal lesions, moist mucosa Neck: supple, symmetric, no JVD, no thyromegaly, no lymphadenopathy Heart: RRR, no murmur, no gallops, no rubs, normal peripheral pulses Respiratory: CTAB, no wheezes, no rales, no ronchi, normal chest expansion Gastrointestinal: soft, non-tender, non-distended, normal bowel sounds Extremities: no cyanosis, no clubbing, no edema Skin: no lesions, no rashes Neurological: cranial nerve grossly intact, no focal deficits Musculoskeletal: normal tone, normal strength, no muscle wasting Psychiatric: normal affect, normal behavior, A&O x 3 Hosp A/P (1) Pleural effusion Code(s): J90 - PLEURAL EFFUSION, NOT ELSEWHERE CLASSIFIED Status: Acute Plan: Pt has BL pleural effusion. Right > Left. Pulm prefers to treat conservatively with diuretics. Pt is off BIPAP now. Will defer mgt to Pulm. - Plan Hosp A/P (1) DKA, type 2 Code(s): E11.10 - TYPE 2 DIABETES MELLITUS WITH KETOACIDOSIS WITHOUT COMA Status: Resolved Qualifiers: Diabetes mellitus community outreach manager insulin use: without community outreach manager use Diabetes mellitus complication detail: without coma Qualified Code(s): E11.10 - Type 2 diabetes mellitus with ketoacidosis without coma Plan: Pt is off Insulin gtt. Now on long acting insulin, Will cont current regimen. Cover with SSI. Pt's parents have been advised on DM education and to f/u with [employer] after d/c. Will likely due well with an insulin pump for shelter. (2) POLO (acute kidney injury) Code(s): N17.9 - ACUTE KIDNEY FAILURE, UNSPECIFIED Status: Acute Plan: Unsure of baseline, but improving daily. Will cont to hydrate gently. Monitor Cr. (3) Acute respiratory failure with hypoxia Code(s): J96.01 - ACUTE RESPIRATORY FAILURE WITH HYPOXIA Status: Acute Plan: Likely due to pleural effusion seen on CT chest. Pt is getting diuretics. He is currently off BIPAP. Will monitor for now. (4) s/p cardiac arrest Status: Acute Plan: Stable. now. Cont to monitor on Telemetry. (5) Schizoaffective disorder Code(s): F25.9 - SCHIZOAFFECTIVE DISORDER, UNSPECIFIED Status: Chronic Qualifiers: Schizoaffective disorder type: unspecified Qualified Code(s): F25.9 - Schizoaffective disorder, unspecified Plan: Cont supportive care. plan discussed w/ family, respiratory therapy PPx: SCDs. CODE: FULL. Dispo: Cont current mgt.
[2019-03-17] MEDS: lamoTRIgine 100 MG TAB PO SCH (20:17)
[2019-03-17] MEDS: ALPRAZolam 0.5 MG TAB PO SCH (20:17)
[2019-03-17] MEDS: Nortriptyline HCl 25 MG CAP PO SCH (20:18)
[2019-03-17] MEDS: CLOZAPINE 100 MG PO SCH (20:18)
[2019-03-18] MEDS: Piperacillin/Tazobactam 3.375 GM in Sodium Chloride 0.9% 100 ML IVPB SCH ×4 (04:12→23:57)
[2019-03-18 05:08] LABS: Band 3 % (5-11); Eosinophils 1 % (0-10); Hemoglobin 10.2 g/dL (14.0-18.0); Lymphocytes 19 % (21-51); MDiff Complete? YES; Mean Corpuscular HGB CONC 33.2 g/dL (32.0-36.0); Mean Corpuscular Hemoglobin 27.2 pg (27.0-31.0); Mean Corpuscular Volume 81.8 fL (78.0-98.0); Mean Platelet Volume 7.5 fL (7.4-10.4); Metamyelocyte 4 % (0-0); Monocytes 7 % (0-10); Neutrophil 66 % (42-75); Platelet Count 405 thou/uL (130-400); Platelet Morphology Comment Appears Increased; RBC Distribution Width 12.5 % (11.5-14.5); Red Blood Cell (RBC) Count 3.76 mill/uL (4.70-6.10); White Blood Cell (WBC) Count 6.4 thou/uL (4.8-10.8)
[2019-03-18 05:12] LABS: Anion Gap 11 mmol/L (10-20); BUN (Urea Nitrogen) 14 mg/dL (8.9-20.6); Calc. Creatinine Clearance 103 mL/min (70-130); Carbon Dioxide 25 mmol/L (22-29); Chloride 110 mmol/L (98-107); Estimated GFR-MDRD 60; Glucose 175 mg/dL (70-105); Magnesium 2.1 mg/dL (1.6-2.6); Potassium 3.3 mmol/L (3.5-5.1); Sodium 143 mmol/L (136-145)
[2019-03-18] MEDS: HumaLOG 300 UNITS/3 ML VIAL SC PRN ×3 (07:47→17:14)
[2019-03-18] MEDS: Insulin Glargine 10 UNITS in Pre-Filled Syringe 1 EACH SC SCH ×2 (07:48→19:57)
[2019-03-18] MEDS: Nortriptyline HCl 25 MG CAP PO SCH (07:49)
[2019-03-18] MEDS: CLOZAPINE 100 MG PO SCH (07:49)
[2019-03-18] MEDS: Sodium Bicarbonate Tab 325 MG TAB PO SCH ×3 (07:50→19:57)
[2019-03-18] MEDS: Enoxaparin Sodium 30 MG/0.3 ML SYRINGE SC SCH (07:50)
--- NOTE | 2019-03-18 09:31 | PRG ---
DATE OF SERVICE: 03/18/2019 SUBJECTIVE: Mr. Lopez is a 28-year-old white male, who was admitted for DKA. He was seen by Renal Service for his acute kidney injury. Initially, he was aggressively volume repleted to improve his renal function, but these did not dramatically improve. Mild acute tubular necrosis was suspected. However, in the last few days, renal function continued to improve with the most recent creatinine being at 1.41. No other complaints today. No chest pain or shortness of breath. OBJECTIVE: VITAL SIGNS: Blood pressure 155/83, heart rate 79, respiratory rate 29, and O2 saturation 98%. GENERAL: Noted to be awake, alert, comfortable, sitting, not in distress. SKIN: Adequate turgor. HEENT: Pinkish conjunctivae. Anicteric sclerae. No neck mass. No carotid bruits. No JVD. CHEST: No deformities. LUNGS: Clear breath sounds. No wheezing. No crackles. HEART: Normal sinus rhythm. No murmur. No gallops. No rubs. ABDOMEN: Globular, soft, and nontender. No masses. EXTREMITIES: No edema. No deformities. MEDICATIONS: Medications of March 18, 2019 was reviewed. LABORATORY DATA: Laboratories of March 18, 2019, showed white count 6.4 and hemoglobin 10.2. Sodium 143, potassium 3.3, chloride 110, carbon dioxide 25, BUN 14, creatinine 1.41, glucose 175, magnesium 2.1, and calcium 8. ASSESSMENT/PLAN: 1. Acute kidney injury, has superimposed acute tubular necrosis, much improved creatinine with a value of 1.41. Continue current management. 2. Metabolic acidosis, much improved with sodium bicarbonate tablets. 3. Diabetic ketoacidosis, resolved. 4. Agree with current management. Job ID: [id number]
[2019-03-18] MEDS ORDERED: Potassium Chloride 20 MEQ TAB PO SCH (11:45)
--- NOTE | 2019-03-18 15:25 | PRG ---
DATE OF SERVICE: 03/18/2019 SUBJECTIVE: Hao Lopez had a good weekend. He did not wear his BiPAP last night. He is 148/87, heart rate 80, respiratory rate 22. His mother feels he is close to his baseline. White count 6.4, hemoglobin 10.2, platelets 405. Sodium 143, potassium 3.3, chloride 110, bicarb 25, BUN 14, creatinine 1.41. Creatinine continues to slowly improve. IMPRESSION: 1. Diabetic ketoacidosis. 2. Status post cardiorespiratory arrest with normal left ventricular systolic function. 3. Acute on chronic kidney disease, slowly improving. 4. New type 1 diabetes. 5. 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 Mother does a phenomenal job of taking care of him. We will continue supportive care. He is stable to move out of Critical Care. I have encouraged him to continue wear CPAP/BiPAP at bedtime. Job ID: [id number]
--- NOTE | 2019-03-18 17:55 | PDOC.HOSPP ---
- Subjective Subjective: No new issues. Pt looks and feels well. His mom feels he will need some Rehab prior to d/c home. - Objective Vital Signs & Weight: Vital Signs (12 hours) Temp Pulse Resp BP Pulse Ox 03/18/19 17:16 98.3 F 84 18 144/83 H 95 03/18/19 15:05 97 03/18/19 13:56 98.6 F 82 18 162/97 H 97 03/18/19 08:00 97 03/18/19 07:00 98.3 F Weight Admit Weight 231 lb Weight 205 lb 11.06 oz Most Recent Monitor Data Heart Rate from ECG 80 NIBP 148/87 NIBP BP-Mean 107 Respiration from ECG 22 SpO2 100 I&O: 03/17/19 03/18/19 03/19/19 06:59 06:59 06:59 Intake Total 3210.2 2720 760 Output Total 2625 4256 625 Balance 585.2 -1536 135 Result Diagrams: 03/18/19 04:16 03/18/19 04:16 Additional Labs: Accuchecks 03/18/19 03/18/19 03/18/19 17:05 11:09 07:43 POC Glucose 230 H 191 H 162 H 03/17/19 20:29 POC Glucose 289 H Hospitalist ROS - Review of Systems Constitutional: denies: fever, chills, sweats, weakness, malaise, other Eyes: denies: pain, vision change, conjunctivae inflammation, eyelid inflammation, redness, other ENT: denies: ear pain, ear discharge, nose pain, nose discharge, nose congestion , mouth pain, mouth swelling, throat pain, throat swelling, other Respiratory: denies: cough, dry, shortness of breath, hemoptysis, SOB with excertion, pleuritic pain, sputum, wheezing, other Cardiovascular: denies: chest pain, palpitations, orthopnea, paroxysmal noc. dyspnea, edema, light headedness, other Gastrointestinal: denies: nausea, vomiting, abdominal pain, diarrhea, constipation, melena, hematochezia, other Genitourinary: denies: dysuria, frequency, incontinence, hematuria, retention, other Musculoskeletal: denies: neck pain, shoulder pain, arm pain, back pain, hand pain, leg pain, foot pain, other Skin: denies: rash, lesions, rosalio, bruising, other Neurological: denies: weakness, numbness, incoordination, change in speech, confusion, seizures, other - Medication Medications: Active Medications Generic Name Dose Route Start Last Admin Trade Name Freq PRN Reason Stop Dose Admin Acetaminophen 650 mg 03/10/19 18:58 03/14/19 13:38 Tylenol PO 650 mg Q4H PRN Administration Headache/Fever/Mild Pain (1-3) Alprazolam 0.5 mg 03/14/19 21:00 03/17/19 20:17 Xanax PO 0.5 mg HS LENA Administration Enoxaparin Sodium 30 mg 03/16/19 09:00 03/18/19 07:50 Lovenox SC 30 mg 0900 LENA Administration Insulin Glargine 10 units/ 0.1 mls @ 0 mls/hr 03/12/19 21:00 03/18/19 07:48 Miscellaneous Medication SC 0.1 mls BID LENA Administration Dexmedetomidine HCl 400 mcg/ 100 mls @ 0 mls/hr 03/13/19 17:15 03/16/19 20:07 Sodium Chloride IVPB 100 mls INF LENA Administration Protocol Per Protocol Piperacillin Sod/Tazobactam 100 mls @ 200 mls/hr 03/14/19 17:00 03/18/19 17: 01 Sod 3.375 gm/ Sodium Chloride IVPB 100 mls 0500,1100,1700,2300 LENA Administration Insulin Human Lispro 0 units 03/12/19 12:31 03/18/19 17:14 Humalog SC 4 unit .MODERATE SLIDING SC PRN Administration Moderate Correctional Scale Lamotrigine 200 mg 03/14/19 21:00 03/17/19 20:17 Lamictal PO 200 mg HS LENA Administration Nortriptyline HCl 50 mg 03/14/19 21:00 03/18/19 07:49 Pamelor PO 50 mg HS LENA Administration Pantoprazole Sodium 40 mg 03/16/19 21:00 03/17/19 20:18 Protonix PO 40 mg 2100 LENA Administration Clozapine 100mg Tabs 2 each 03/14/19 21:00 03/18/19 07:49 Patient's Home PO 2 each Medication HS LENA Administration Senna/Docusate Sodium 2 tab 03/10/19 18:58 03/13/19 12:05 Senokot S PO 2 tab BIDPRN PRN Administration Constipation Sodium Bicarbonate 650 mg 03/16/19 15:00 03/18/19 17:00 Bicarbonate, Sodium PO 650 mg TID LENA Administration - Exam General Appearance: NAD, awake alert Eye: PERRL, anicteric sclera ENT: normocephalic atraumatic, no oropharyngeal lesions, moist mucosa Neck: supple, symmetric, no JVD, no thyromegaly Heart: RRR, no murmur, no gallops, no rubs, normal peripheral pulses Respiratory: CTAB, no wheezes, no rales, no ronchi Gastrointestinal: soft, non-tender, non-distended, normal bowel sounds Extremities: no cyanosis, no clubbing, no edema Skin: normal turgor, no lesions, no rashes Neurological: cranial nerve grossly intact, no focal deficits Musculoskeletal: normal tone, normal strength, no muscle wasting Psychiatric: normal affect, normal behavior, A&O x 3 Hosp A/P (1) Pleural effusion Code(s): J90 - PLEURAL EFFUSION, NOT ELSEWHERE CLASSIFIED Status: Acute Plan: Being treated conservatively with diuretics. Pt seems to have no resp issues. - Plan Hosp A/P (1) DKA, type 2 Code(s): E11.10 - TYPE 2 DIABETES MELLITUS WITH KETOACIDOSIS WITHOUT COMA Status: Resolved Qualifiers: Diabetes mellitus chcf insulin use: without global marketing specialist use Diabetes mellitus complication detail: without coma Qualified Code(s): E11.10 - Type 2 diabetes mellitus with ketoacidosis without coma Plan: Pt is off Insulin gtt. Now on long acting insulin, and stable. Will cont current regimen. Cover with SSI. Pt's parents have been advised on DM education and to f/u with [facility] after d/c. Will likely due well with an insulin pump for [facility]. (2) POLO (acute kidney injury) Code(s): N17.9 - ACUTE KIDNEY FAILURE, UNSPECIFIED Status: Acute Plan: Unsure of baseline, but improving daily. Will cont to hydrate gently. Monitor Cr. (3) Acute respiratory failure with hypoxia Code(s): J96.01 - ACUTE RESPIRATORY FAILURE WITH HYPOXIA Status: Acute Plan: Likely due to pleural effusion seen on CT chest. Pt is getting diuretics and is now off O2. Currently 100% on RA.. He is currently off BIPAP. Will monitor for now. (4) s/p cardiac arrest Status: Acute Plan: Stable. now. Cont to monitor on Telemetry. (5) Schizoaffective disorder Code(s): F25.9 - SCHIZOAFFECTIVE DISORDER, UNSPECIFIED Status: Chronic Qualifiers: Schizoaffective disorder type: unspecified Qualified Code(s): F25.9 - Schizoaffective disorder, unspecified Plan: Cont supportive care. HypoK: Will replace, monitor K. HTN: Elevated BP noted. Will monitor for now. Start BP meds if needed. Debility: Pt's mother is requesting a Rehab eval. Will consult CM. Plan discussed w/ family, SAM PPx: SCDs. CODE: FULL. Dispo: Cont current mgt. Rehab eval.
[2019-03-18] MEDS: lamoTRIgine 100 MG TAB PO SCH (19:56)
[2019-03-18] MEDS: ALPRAZolam 0.5 MG TAB PO SCH (19:56)
[2019-03-18 20:01] VITALS: BMI 33.2
[2019-03-19] MEDS: Piperacillin/Tazobactam 3.375 GM in Sodium Chloride 0.9% 100 ML IVPB SCH ×4 (06:04→23:59)
[2019-03-19] MEDS: HumaLOG 300 UNITS/3 ML VIAL SC PRN ×2 (06:04→10:49)
[2019-03-19 06:24] LABS: Hemoglobin 10.6 g/dL (14.0-18.0); Mean Corpuscular HGB CONC 33.9 g/dL (32.0-36.0); Mean Corpuscular Hemoglobin 28.1 pg (27.0-31.0); Mean Corpuscular Volume 82.7 fL (78.0-98.0); Mean Platelet Volume 7.5 fL (7.4-10.4); Platelet Count 365 thou/uL (130-400); RBC Distribution Width 12.6 % (11.5-14.5); Red Blood Cell (RBC) Count 3.77 mill/uL (4.70-6.10); White Blood Cell (WBC) Count 7.1 thou/uL (4.8-10.8)
[2019-03-19 06:28] LABS: Anion Gap 11 mmol/L (10-20); BUN (Urea Nitrogen) 13 mg/dL (8.9-20.6); Calc. Creatinine Clearance 104 mL/min (70-130); Calcium 8.5 mg/dL (7.8-10.44); Carbon Dioxide 28 mmol/L (22-29); Chloride 109 mmol/L (98-107); Estimated GFR-MDRD 61; Glucose 206 mg/dL (70-105); Potassium 3.7 mmol/L (3.5-5.1); Sodium 144 mmol/L (136-145)
[2019-03-19 06:49] LABS: Band 4 % (5-11); Eosinophils 2 % (0-10); Hypochromia SLIGHT = 6-15 cells (100X) (0-5/hpf); Lymphocytes 17 % (21-51); MDiff Complete? YES; Monocytes 5 % (0-10); Neutrophil 72 % (42-75); Platelet Morphology Comment Appears Adequate
[2019-03-19] MEDS: Sodium Bicarbonate Tab 325 MG TAB PO SCH ×3 (07:48→20:26)
[2019-03-19] MEDS: Enoxaparin Sodium 30 MG/0.3 ML SYRINGE SC SCH (07:49)
[2019-03-19] MEDS: Insulin Glargine 10 UNITS in Pre-Filled Syringe 1 EACH SC SCH ×2 (07:49→20:31)
[2019-03-19] MEDS: Acetaminophen 325 MG TAB PO PRN (17:04)
[2019-03-19] MEDS: Nortriptyline HCl 25 MG CAP PO SCH (20:26)
[2019-03-19] MEDS: ALPRAZolam 0.5 MG TAB PO SCH (20:27)
[2019-03-19] MEDS: CLOZAPINE 100 MG PO SCH (20:27)
[2019-03-19] MEDS: lamoTRIgine 100 MG TAB PO SCH (20:27)
--- NOTE | 2019-03-19 20:33 | PDOC.HOSPP ---
- Subjective Encounter Date: 03/19/19 Encounter Time: 17:00 Subjective: f/u for deconditioning, DKA. Feels better overall and ambulating with RW. Plan for transfer to in rehab in am. - Objective Vital Signs & Weight: Vital Signs (12 hours) Temp Pulse Resp BP BP BP Pulse Ox 03/19/19 19:12 98.3 F 65 20 143/88 H 96 03/19/19 16:20 98.4 F 63 18 165/93 H 96 03/19/19 11:35 98.7 F 66 18 152/87 H 95 Weight Admit Weight 231 lb Weight 205 lb 11.06 oz Most Recent Monitor Data Heart Rate from ECG 80 NIBP 148/87 NIBP BP-Mean 107 Respiration from ECG 22 SpO2 100 I&O: 03/18/19 03/19/19 03/20/19 06:59 06:59 06:59 Intake Total 2720 2260 Output Total 4256 1025 Balance -1536 1235 Result Diagrams: 03/19/19 05:41 03/19/19 05:41 Additional Labs: Accuchecks 03/19/19 03/19/19 03/19/19 16:35 10:49 03:44 POC Glucose 188 H 230 H 203 H 03/18/19 19:30 POC Glucose 264 H Microbiology 03/16/19 11:21 Stool - Liquid C. difficile GDH Antigen & Toxins - Final 03/11/19 00:45 Stool C. difficile GDH Antigen & Toxins - Final 03/10/19 17:43 Venous blood - Right Arm Blood Culture - Final NO GROWTH IN 5 DAYS 03/10/19 17:20 Venous blood - Left Hand Blood Culture - Final NO GROWTH IN 5 DAYS Laboratory Tests 03/10/19 03/14/19 03/15/19 17:20 17:51 04:49 Hgb Sodium Carbon Dioxide Creatinine 2.25 H B-Hydroxybutyrate 12.92 H 2.36 H 03/16/19 03/16/19 03/17/19 06:38 06:42 05:31 Hgb 11.1 L Sodium 149 H Carbon Dioxide 13 L Creatinine 2.01 H 1.62 H B-Hydroxybutyrate 03/17/19 03/18/19 03/18/19 05:31 04:16 04:16 Hgb 11.3 L 10.2 L Sodium Carbon Dioxide Creatinine 1.41 H B-Hydroxybutyrate Hospitalist ROS - Medication Medications: Active Medications Generic Name Dose Route Start Last Admin Trade Name Freq PRN Reason Stop Dose Admin Acetaminophen 650 mg 03/10/19 18:58 03/19/19 17:04 Tylenol PO 650 mg Q4H PRN Administration Headache/Fever/Mild Pain (1-3) Alprazolam 0.5 mg 03/14/19 21:00 03/18/19 19:56 Xanax PO 0.5 mg HS LENA Administration Enoxaparin Sodium 30 mg 03/16/19 09:00 03/19/19 07:49 Lovenox SC 30 mg 0900 LENA Administration Insulin Glargine 10 units/ 0.1 mls @ 0 mls/hr 03/12/19 21:00 03/19/19 07:49 Miscellaneous Medication SC 0.1 mls BID LENA Administration Piperacillin Sod/Tazobactam 100 mls @ 200 mls/hr 03/14/19 17:00 03/19/19 16: 58 Sod 3.375 gm/ Sodium Chloride IVPB 100 mls 0500,1100,1700,2300 LENA Administration Insulin Human Lispro 0 units 03/12/19 12:31 03/19/19 10:49 Humalog SC 4 unit .MODERATE SLIDING SC PRN Administration Moderate Correctional Scale Lamotrigine 200 mg 03/14/19 21:00 03/18/19 19:56 Lamictal PO 200 mg HS LENA Administration Nortriptyline HCl 50 mg 03/14/19 21:00 03/18/19 07:49 Pamelor PO 50 mg HS LENA Administration Pantoprazole Sodium 40 mg 03/16/19 21:00 03/18/19 19:57 Protonix PO 40 mg 2100 LENA Administration Clozapine 100mg Tabs 2 each 03/14/19 21:00 03/18/19 07:49 Patient's Home PO 2 each Medication HS LENA Administration Senna/Docusate Sodium 2 tab 03/10/19 18:58 03/13/19 12:05 Senokot S PO 2 tab BIDPRN PRN Administration Constipation Sodium Bicarbonate 650 mg 03/16/19 15:00 03/19/19 15:10 Bicarbonate, Sodium PO 650 mg TID LENA Administration - Exam General Appearance: NAD, awake alert Eye: PERRL, anicteric sclera ENT: normocephalic atraumatic, no oropharyngeal lesions Neck: supple, symmetric, no JVD, no thyromegaly Heart: RRR, no murmur, no gallops, no rubs, normal peripheral pulses Respiratory: CTAB, no wheezes, no rales, no ronchi, normal chest expansion Gastrointestinal: soft, non-tender, non-distended, normal bowel sounds Extremities: no cyanosis, no clubbing, no edema Skin: normal turgor, no lesions Neurological: cranial nerve grossly intact, no new deficit Musculoskeletal: normal tone, generalized weakness Psychiatric: A&O x 3, flat affect Hosp A/P (1) POLO (acute kidney injury) Code(s): N17.9 - ACUTE KIDNEY FAILURE, UNSPECIFIED Status: Acute Plan: Continue supportive mgmt, avoid nephrotoxic meds and limit contrast (2) DKA, type 2 Code(s): E11.10 - TYPE 2 DIABETES MELLITUS WITH KETOACIDOSIS WITHOUT COMA Status: Resolved Qualifiers: Diabetes mellitus long term care administrator insulin use: without long term care administrator use Diabetes mellitus complication detail: without coma Qualified Code(s): E11.10 - Type 2 diabetes mellitus with ketoacidosis without coma Plan: Resolved, continue current insulin regimen, serial accuchecks (3) Acute respiratory failure with hypoxia Code(s): J96.01 - ACUTE RESPIRATORY FAILURE WITH HYPOXIA Status: Acute Plan: Resolved (4) s/p cardiac arrest Status: Acute Plan: Brief arrest with ROSC, stable (5) Schizoaffective disorder Code(s): F25.9 - SCHIZOAFFECTIVE DISORDER, UNSPECIFIED Status: Chronic Qualifiers: Schizoaffective disorder type: unspecified Qualified Code(s): F25.9 - Schizoaffective disorder, unspecified Plan: Stable, continue home psychotropes - Plan plan discussed w/ family, PT/OT, social media designer, out of bed/ambulate, DVT proph w/SCDs Stable currently Continue current insulin regimen OOB with PT Plan for inpt rehab in next 24h AM lab: BMP
[2019-03-20] MEDS: Piperacillin/Tazobactam 3.375 GM in Sodium Chloride 0.9% 100 ML IVPB SCH ×4 (05:33→22:32)
[2019-03-20 06:02] LABS: Band 2 % (5-11); Eosinophils 2 % (0-10); Hemoglobin 11.1 g/dL (14.0-18.0); Lymphocytes 24 % (21-51); MDiff Complete? YES; Mean Corpuscular Hemoglobin 26.6 pg (27.0-31.0); Mean Corpuscular Volume 83.2 fL (78.0-98.0); Mean Platelet Volume 7.1 fL (7.4-10.4); Metamyelocyte 1 % (0-0); Monocytes 5 % (0-10); Neutrophil 66 % (42-75); Platelet Count 334 thou/uL (130-400); Platelet Morphology Comment Appears Adequate; RBC Distribution Width 12.5 % (11.5-14.5); Red Blood Cell (RBC) Count 4.17 mill/uL (4.70-6.10); White Blood Cell (WBC) Count 7.7 thou/uL (4.8-10.8)
[2019-03-20 06:13] LABS: Anion Gap 14 mmol/L (10-20); BUN (Urea Nitrogen) 10 mg/dL (8.9-20.6); Calc. Creatinine Clearance 99 mL/min (70-130); Carbon Dioxide 28 mmol/L (22-29); Chloride 105 mmol/L (98-107); Estimated GFR-MDRD 57; Glucose 179 mg/dL (70-105); Potassium 3.5 mmol/L (3.5-5.1); Sodium 143 mmol/L (136-145)
[2019-03-20] MEDS: Enoxaparin Sodium 30 MG/0.3 ML SYRINGE SC SCH (08:05)
[2019-03-20] MEDS: Sodium Bicarbonate Tab 325 MG TAB PO SCH ×3 (08:05→20:25)
[2019-03-20] MEDS: Insulin Glargine 10 UNITS in Pre-Filled Syringe 1 EACH SC SCH ×2 (08:05→20:27)
--- NOTE | 2019-03-20 11:01 | PDOC.HOSPP ---
- Subjective Encounter Date: 03/20/19 Encounter Time: 10:00 Subjective: f/u for DKA, deconditioning. Feels ok overall. Ambulating with RW. Awaiting Rehab opening. - Objective Vital Signs & Weight: Vital Signs (12 hours) Temp Pulse Resp BP Pulse Ox 03/20/19 07:45 98.4 F 66 20 148/84 H 98 Weight Admit Weight 231 lb Weight 205 lb 11.06 oz Most Recent Monitor Data Heart Rate from ECG 80 NIBP 148/87 NIBP BP-Mean 107 Respiration from ECG 22 SpO2 100 I&O: 03/19/19 03/20/19 03/21/19 06:59 06:59 06:59 Intake Total 2260 680 Output Total 1025 Balance 1235 680 Result Diagrams: 03/20/19 05:35 03/20/19 05:35 Additional Labs: Accuchecks 03/20/19 03/19/19 03/19/19 04:57 19:19 16:35 POC Glucose 171 H 269 H 188 H 03/19/19 10:49 POC Glucose 230 H Microbiology 03/16/19 11:21 Stool - Liquid C. difficile GDH Antigen & Toxins - Final 03/11/19 00:45 Stool C. difficile GDH Antigen & Toxins - Final 03/10/19 17:43 Venous blood - Right Arm Blood Culture - Final NO GROWTH IN 5 DAYS 03/10/19 17:20 Venous blood - Left Hand Blood Culture - Final NO GROWTH IN 5 DAYS Laboratory Tests 03/10/19 03/14/19 03/15/19 17:20 17:51 04:49 Hgb Sodium Carbon Dioxide Creatinine 2.25 H B-Hydroxybutyrate 12.92 H 2.36 H 03/16/19 03/16/19 03/17/19 06:38 06:42 05:31 Hgb 11.1 L Sodium 149 H Carbon Dioxide 13 L Creatinine 2.01 H 1.62 H B-Hydroxybutyrate 03/17/19 03/18/19 03/18/19 05:31 04:16 04:16 Hgb 11.3 L 10.2 L Sodium Carbon Dioxide Creatinine 1.41 H B-Hydroxybutyrate Hospitalist ROS - Medication Medications: Active Medications Generic Name Dose Route Start Last Admin Trade Name Freq PRN Reason Stop Dose Admin Acetaminophen 650 mg 03/10/19 18:58 03/19/19 17:04 Tylenol PO 650 mg Q4H PRN Administration Headache/Fever/Mild Pain (1-3) Alprazolam 0.5 mg 03/14/19 21:00 03/19/19 20:27 Xanax PO 0.5 mg HS LENA Administration Enoxaparin Sodium 30 mg 03/16/19 09:00 03/20/19 08:05 Lovenox SC 30 mg 0900 LENA Administration Insulin Glargine 10 units/ 0.1 mls @ 0 mls/hr 03/12/19 21:00 03/20/19 08:05 Miscellaneous Medication SC 0.1 mls BID LENA Administration Piperacillin Sod/Tazobactam 100 mls @ 200 mls/hr 03/14/19 17:00 03/20/19 05: 33 Sod 3.375 gm/ Sodium Chloride IVPB 100 mls 0500,1100,1700,2300 LENA Administration Insulin Human Lispro 0 units 03/12/19 12:31 03/19/19 10:49 Humalog SC 4 unit .MODERATE SLIDING SC PRN Administration Moderate Correctional Scale Lamotrigine 200 mg 03/14/19 21:00 03/19/19 20:27 Lamictal PO 200 mg HS LENA Administration Nortriptyline HCl 50 mg 03/14/19 21:00 03/19/19 20:26 Pamelor PO 50 mg HS LENA Administration Pantoprazole Sodium 40 mg 03/16/19 21:00 03/19/19 20:27 Protonix PO 40 mg 2100 LENA Administration Clozapine 100mg Tabs 2 each 03/14/19 21:00 03/19/19 20:27 Patient's Home PO 2 each Medication HS LENA Administration Senna/Docusate Sodium 2 tab 03/10/19 18:58 03/13/19 12:05 Senokot S PO 2 tab BIDPRN PRN Administration Constipation Sodium Bicarbonate 650 mg 03/16/19 15:00 03/20/19 08:05 Bicarbonate, Sodium PO 650 mg TID LENA Administration - Exam General Appearance: NAD, awake alert Eye: PERRL, anicteric sclera ENT: normocephalic atraumatic, no oropharyngeal lesions Neck: supple, symmetric, no JVD, no thyromegaly Heart: RRR, no murmur, no gallops, no rubs, normal peripheral pulses Respiratory: CTAB, no wheezes, no rales, no ronchi, normal chest expansion Gastrointestinal: soft, non-tender, non-distended, normal bowel sounds, no palpable masses Extremities: no cyanosis, no clubbing, no edema Skin: normal turgor, no lesions Neurological: cranial nerve grossly intact, no new deficit Musculoskeletal: normal tone, generalized weakness Psychiatric: flat affect Hosp A/P (1) POLO (acute kidney injury) Code(s): N17.9 - ACUTE KIDNEY FAILURE, UNSPECIFIED Status: Acute Plan: Improved, avoid nephrotoxic meds and limit contrast exposure, serial creatinine (2) DKA, type 2 Code(s): E11.10 - TYPE 2 DIABETES MELLITUS WITH KETOACIDOSIS WITHOUT COMA Status: Resolved Qualifiers: Diabetes mellitus snf insulin use: without snf use Diabetes mellitus complication detail: without coma Qualified Code(s): E11.10 - Type 2 diabetes mellitus with ketoacidosis without coma Plan: Resolved (3) Acute respiratory failure with hypoxia Code(s): J96.01 - ACUTE RESPIRATORY FAILURE WITH HYPOXIA Status: Acute Plan: Resolved (4) s/p cardiac arrest Status: Acute (5) Schizoaffective disorder Code(s): F25.9 - SCHIZOAFFECTIVE DISORDER, UNSPECIFIED Status: Chronic Qualifiers: Schizoaffective disorder type: unspecified Qualified Code(s): F25.9 - Schizoaffective disorder, unspecified - Plan plan discussed w/ family, continue antibiotics, PT/OT, clinical social worker, out of bed/ambulate, DVT proph w/SCDs Stable currently Continue current insulin regimen OOB with PT Plan for inpt rehab in next 24h AM lab: BMP
[2019-03-20] MEDS: HumaLOG 300 UNITS/3 ML VIAL SC PRN ×2 (12:06→17:51)
[2019-03-20] MEDS: lamoTRIgine 100 MG TAB PO SCH (20:24)
[2019-03-20] MEDS: ALPRAZolam 0.5 MG TAB PO SCH (20:24)
[2019-03-20] MEDS: Nortriptyline HCl 25 MG CAP PO SCH (20:25)
[2019-03-20] MEDS: CLOZAPINE 100 MG PO SCH (20:26)
[2019-03-21] MEDS: Piperacillin/Tazobactam 3.375 GM in Sodium Chloride 0.9% 100 ML IVPB SCH ×2 (05:13→11:44)
[2019-03-21] MEDS: HumaLOG 300 UNITS/3 ML VIAL SC PRN (05:15)
[2019-03-21 06:05] LABS: Anion Gap 11 mmol/L (10-20); BUN (Urea Nitrogen) 10 mg/dL (8.9-20.6); Calc. Creatinine Clearance 104 mL/min (70-130); Calcium 8.5 mg/dL (7.8-10.44); Carbon Dioxide 28 mmol/L (22-29); Chloride 105 mmol/L (98-107); Estimated GFR-MDRD 60; Glucose 144 mg/dL (70-105); Potassium 3.2 mmol/L (3.5-5.1); Sodium 141 mmol/L (136-145)
[2019-03-21] MEDS: Insulin Glargine 10 UNITS in Pre-Filled Syringe 1 EACH SC SCH (08:47)
[2019-03-21] MEDS: Sodium Bicarbonate Tab 325 MG TAB PO SCH ×2 (08:48→14:43)
[2019-03-21] MEDS ORDERED: Enoxaparin Sodium 40 MG/0.4 ML SYRINGE SC SCH (09:00)
--- NOTE | 2019-03-21 12:28 | DIS ---
DATE OF ADMISSION: 03/10/2019 DATE OF DISCHARGE: 03/21/2019 DISCHARGE DIAGNOSES: 1. Diabetic ketoacidosis, resolved. 2. Acute kidney injury, resolved. 3. Acute hypoxic respiratory failure, resolved. 4. Status post brief cardiac arrest with return of spontaneous circulation. 5. Schizoaffective disorder. 6. Deconditioning. CONSULTATIONS: 1. Dr. Johnson with Nephrology Service. 2. Dr. Nicholson with Pulmonology/Critical Care Service. PERTINENT LABORATORY AND X-RAY FINDINGS: Potassium ranged between 2.3 to 4.4. The creatinine ranged between 1.39 to 3.20. Estimated GFR ranged between 23 to 60. Lactic acid level ranged between 2.1 to 2.7. TSH 0.26. CBC showed a hemoglobin ranging between 10.2 to 11.1. Urine drug screen dated 03/10/2019, positive for tricyclics. Beta-hydroxybutyrate level ranged between 2.36 to 12.92. Blood cultures x2 dated 03/10/2019, showed no growth at 5 days. C difficile antigen and toxin dated 03/11/2019, negative. C difficile antigen and toxin dated 03/16/2019, negative. Portable chest x-ray dated 03/10/2019, showed no acute cardiopulmonary process. CT of the abdomen and pelvis dated 03/10/2019, showed bibasilar atelectasis. Hepatosplenomegaly noted. 2D transthoracic echocardiogram dated 03/11/2019, showed ejection fraction 55% to 60%. Mild mitral and tricuspid regurgitation. Portable chest x-ray dated 03/15/2019, showed increased interstitial markings bilaterally. CT of the chest dated 03/16/2019, showed bilateral pleural effusions with moderate right and left pleural effusions with associated atelectasis. Consolidation in the left upper and lower lobe, likely related to pneumonia. HOSPITAL COURSE: The patient was initially admitted after presenting in diabetic ketoacidosis. The patient was aggressively managed with IV fluid hydration and placed on DKA protocol with insulin infusion. The patient was also treated with broad-spectrum IV antibiotic therapy after concern for possible sepsis as underlying etiology of the patient's presentation. The patient had a Code Blue incident occurred on 03/10/2019, with an apparent brief cardiac arrest with spontaneous return of circulation; however, required mechanical ventilation and Levophed infusion. The patient was monitored in the critical care unit, eventually transitioning off mechanical ventilation and stabilizing without vasopressor support. The patient received aggressive IV fluid hydration and treatment for underlying acidosis. The patient was noted with acute kidney injury and monitored by the Nephrology Service during the hospital course. The patient continued IV fluid replacement and avoidance of nephrotoxic agents. The patient did receive albumin infusion and overall slow improvement in renal function occurred for the remainder of the hospital course. The patient transitioned out of the Critical Care Unit to the medical floor, ambulating with a rolling walker and physical therapy assistance. Clinically, the patient stabilized with general supportive management and glucose trend improved with initiation of long-acting and short-acting insulin regimen. Due to the patient's overall deconditioned status, the patient was deemed appropriate candidate for ongoing inpatient rehabilitation. I have examined the patient at the time of discharge and discussed followup instructions. The patient verbalized understanding and in agreement, ready for discharge on 03/21/2019. DISCHARGE MEDICATIONS: 1. Xanax 0.5 mg p.o. at bedtime. 2. Clozapine 200 mg p.o. at bedtime. 3. Lamictal 200 mg p.o. at bedtime. 4. Nortriptyline 50 mg p.o. at bedtime. 5. Lantus 10 units subcutaneously b.i.d. 6. Protonix 40 mg p.o. daily. 7. K-Dur 20 mEq p.o. b.i.d. until 03/23/2019. FOLLOWUP: The patient may follow up with Dr. Thierry Lozano with Endocrinology Service after discharge from inpatient rehabilitation. CONDITION ON DISCHARGE: Stable. ACTIVITY: Ad-jaimie. Rolling walker with standby assistance. DIET: ADA. CODE STATUS: Full. DISPOSITION: Discharged to [facility] on 03/21/2019. Total time preparing and coordinating discharge is 34 minutes. Job ID: [id number]
[2019-03-21] MEDS: FLU VACC QS2019-20(6MOS UP)/PF 60 MCG/0.5 ML SYRINGE IM ONE (14:42)
[2019-03-21 15:26] VITALS: BP 136/82; TEMP 98.1
== END 2019-03-21 15:06 | DRG 871 ==
LOC: ERS 16:27 → IMCU/EMU 19:43 → CCU 22:40 → T4-B 03-18 14:05
PROVIDERS: ADMIT Internal Medicine; ATTEND Internal Medicine
PROC: 5A1945Z Respiratory Ventilation, 24-96 Consecutive Hours (ICD-10-PCS; principal; 2019-03-10)
PROC: 3E043XZ Introduction of Vasopressor into Central Vein, Percutaneous Approach (ICD-10-PCS; 2019-03-10)
PROC: 5A12012 Performance of Cardiac Output, Single, Manual (ICD-10-PCS; 2019-03-10)
PROC: 0BH17EZ Insertion of Endotracheal Airway into Trachea, Via Natural or Artificial Opening (ICD-10-PCS; 2019-03-10)
PROC: 02HV33Z Insertion of Infusion Device into Superior Vena Cava, Percutaneous Approach (ICD-10-PCS; 2019-03-10)
PROC: 3E02340 Introduction of Influenza Vaccine into Muscle, Percutaneous Approach (ICD-10-PCS; 2019-03-12)
PROC: 3E0234Z Introduction of Serum, Toxoid and Vaccine into Muscle, Percutaneous Approach (ICD-10-PCS; 2019-03-21)
DX: A41.9 Sepsis, unspecified organism (principal); J96.01 Acute respiratory failure with hypoxia; I49.01 Ventricular fibrillation; G93.41 Metabolic encephalopathy; I46.2 Cardiac arrest due to underlying cardiac condition; N17.0 Acute kidney failure with tubular necrosis; E10.10 Type 1 diabetes mellitus with ketoacidosis without coma; I47.2 Ventricular tachycardia; E87.0 Hyperosmolality and hypernatremia; E23.0 Hypopituitarism; R65.20 Severe sepsis without septic shock; F25.9 Schizoaffective disorder, unspecified; F31.9 Bipolar disorder, unspecified; E66.9 Obesity, unspecified; E86.0 Dehydration; E87.6 Hypokalemia; E87.8 Other disorders of electrolyte and fluid balance, not elsewhere classified; Z23 Encounter for immunization; Z68.33 Body mass index [BMI] 33.0-33.9, adult; Z79.899 Other long term (current) drug therapy
CPT/HCPCS: 36415; 36416; 71045; 71250; 74176; 80048; 80053; 80061; 80306; 80307; 81001; 81003; 81015; 82010; 82533; 82550; 82570; 82805; 83605; 83690; 83735; 84156; 84300; 84443; 85007; 85025; 85027; 85049; 85060; 85300; 85362; 85379; 85384; 85610; 85730; 87040; 87324; 87449; 90471; 90686; 90732; 93005; 93306; 94002; 94003; 94640; 94660; 96361; 96365; 96375; 99292; C9113; G0008; G0009; J0171; J1630; J1650; J1815; J1940; J2060; J2405; J2543; J2704; J2765; J3010; J3370; J3475; J3480; J3490; J7050; J7620; P9047